=== PATIENT | male | born 1950 | race Caucasian/White ===

== ENCOUNTER 2018-01-06 01:21 | Inpatient (IN) | payer MEDICARE, MEDICAID, OTHER ==
--- NOTE | 2018-01-06 01:56 | EDM.PDOC ---
ED HPI GENERAL MEDICAL PROBLEM - General Chief Complaint: General Stated Complaint: LOC/lac Time Seen by Provider: 01/06/18 01:56 Source of Information: Reports: Patient - History of Present Illness INITIAL COMMENTS - FREE TEXT/NARRATIVE: Magdiel is a 67 year old male with PMH of CAD, hypertenson, hyperlipidemia, peripheral vascular disease, COPD, and TIA who presents to the ED via private vehicle with c/o fall and face laceration. He reports he got up from sleep around 10 pm and the next thing he remembers is waking up on the floor. He denies tripping, etc. Reports he also had a similar episode last week, in which he also hit his head. He believes he just passes out. He reports he has been doctoring in [facility] with Dr. Bassett and [place] with a cardologist "for his heart and vessels that are clogged but theres not much more they can do." Reports he had a TIA 6 years ago, has been on aspirin and plavix since. Has had recent US of carotid arteries, revealing chronic occlusion of right internal carotid artery, and fairly extensive calcified artherosclerosis of the left common and internal carotid arteries. He does report that he has felt more weak lately, but other than that has been feeling well. Reports that he decided to come in because his upper extremities were shaking. He denies any dizziness, headache, N/T, chest pain, shortness of breath. Denies any history of heart attack, orthopnea, palpitations. He does report he smokes 2 ppd for the past 50 years and drinks 6 beers/day. Does report he had his "normal amount of beer" this evening, but went to bed an hour before this happened. Onset: Today, Sudden Onset Date: 01/06/18 Onset Time: 22:00 Duration: Resolved Prior to Arrival Location: Reports: Head Associated Symptoms: Reports: Weakness. Denies: Confusion, Chest Pain, Cough, cough w sputum, Diaphoresis, Fever/Chills, Headaches, Loss of Appetite, Malaise , Nausea/Vomiting, Rash, Seizure, Shortness of Breath, Syncope - Related Data Allergies Allergy/AdvReac Type Severity Reaction Status Date / Time No Known Allergies Allergy Verified 01/06/18 04:03 Home Meds: Home Meds Lisinopril 20 mg PO DAILY 04/25/14 [History] Multivitamins [Tab-A-Dennys] 1 tab PO DAILY 04/25/14 [History] Simvastatin [Zocor] 20 mg PO BEDTIME 04/25/14 [History] Aspirin [Halfprin] 81 mg PO DAILY #100 tab.ec 01/05/16 [Rx] Clopidogrel [Plavix] 75 mg PO DAILY #30 tablet 01/05/16 [Rx] amLODIPine [Norvasc] 10 mg PO BEDTIME #30 tablet 01/05/16 [Rx] Albuterol/Ipratropium [DuoNeb 3.0-0.5 MG/3 ML] 3 ml INH QID 01/06/18 [History] Cholecalciferol (Vitamin D3) [Vitamin D3] 2,000 units PO DAILY 01/06/18 [History ] Metoprolol Succinate 50 mg PO DAILY 01/06/18 [History] Past Medical History HEENT History: Reports: Impaired Vision Other HEENT History: 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 Cardiovascular History: Reports: High Cholesterol, Hypertension Neurological History: Reports: TIA - Past Surgical History Musculoskeletal Surgical History: Reports: Knee Replacement Social & Family History - Family History Family Medical History: Noncontributory - Tobacco Use Smoking Status *Q: Current Every Day Smoker Years of Tobacco use: 50 Packs/Tins Daily: 2 - Caffeine Use Caffeine Use: Reports: Coffee - Alcohol Use Days Per Week of Alcohol Use: 7 Number of Drinks Per Day: 6 Total Drinks Per Week: 42 Alcohol Use Frequency: Daily - Recreational Drug Use Recreational Drug Use: No - Living Situation & Occupation Living situation: Reports: Alone ED ROS GENERAL - Review of Systems Review Of Systems: See Below Constitutional: Reports: Weakness, Fatigue. Denies: Fever, Chills, Malaise, Decreased Appetite, Weight Loss HEENT: Denies: Eye Discharge, Eye Pain, Nosebleed, Vertigo, Vision Change Respiratory: Denies: Shortness of Breath, Wheezing, Pleuritic Chest Pain, Cough , Sputum, Hemoptysis Cardiovascular: Reports: Dyspnea on Exertion, Syncope. Denies: Chest Pain, Edema, Lightheadedness Endocrine: Reports: Fatigue GI/Abdominal: Reports: No Symptoms. Denies: Abdominal Pain, Black Stool, Bloody Stool, Constipation, Diarrhea, Nausea, Vomiting : Reports: No Symptoms. Denies: Dysuria, Frequency, Urgency Musculoskeletal: Reports: No Symptoms. Denies: Neck Pain, Shoulder Pain, Arm Pain, Back Pain, Leg Pain, Joint Pain Skin: Reports: No Symptoms Neurological: Reports: Syncope, Weakness. Denies: Confusion, Dizziness, Headache, Numbness, Tingling Psychiatric: Reports: No Symptoms Hematologic/Lymphatic: Reports: No Symptoms Immunologic: Reports: No Symptoms ED EXAM, GENERAL - Physical Exam Exam: See Below Exam Limited By: No Limitations General Appearance: Alert, WD/WN, No Apparent Distress Eye Exam: Right Eye: PERRL, Left Eye: Other (dilated & fixed, baseline from old injury), Bilateral Eye: EOMI, Normal Fundi, Normal Inspection Ears: Normal External Exam, Normal Canal, Hearing Grossly Normal, Normal TMs Nose: Normal Inspection, Normal Mucosa, No Blood Throat/Mouth: Normal Inspection, Normal Lips, Normal Teeth (upper dentures), Normal Gums, Normal Oropharynx, Normal Voice, No Airway Compromise Head: Facial Swelling, Facial Tenderness, Other (4.5 cm superficial abrasion from mid forehead to bridge of nose, scabbed over) Neck: Normal Inspection, Supple, Non-Tender, Full Range of Motion Respiratory/Chest: No Respiratory Distress, Rales, Rhonchi, Wheezing Cardiovascular: Regular Rate, Rhythm, No Edema, No Murmur, Gallop/S3 Back Exam: Normal Inspection, Full Range of Motion, NT Extremities: Normal Inspection, Normal Range of Motion, Non-Tender, Normal Capillary Refill, No Pedal Edema Neurological: Alert, Oriented, CN II-XII Intact, Normal Cognition, Normal Gait, No Motor/Sensory Deficits, Other (tremor BUE) Psychiatric: Normal Affect, Normal Mood Skin Exam: Warm, Dry, Intact, Normal Color, No Rash Course - Vital Signs Last Recorded V/S: Last Vital Signs Temp 96.2 F 01/07/18 07:09 Pulse 102 H 01/07/18 08:24 Resp 20 01/07/18 07:09 BP 124/67 01/07/18 08:24 Pulse Ox 98 01/07/18 07:09 - Orders/Labs/Meds Orders: Active Orders 24 hr Category Date Time Status BMP [BASIC METABOLIC PANEL,BMP] [CHEM] DAILY Lab 01/08/18 06:00 Ordered BMP [BASIC METABOLIC PANEL,BMP] [CHEM] DAILY Lab 01/09/18 06:00 Ordered C-REACTIVE PROTEIN [CHEM] DAILY Lab 01/08/18 06:00 Ordered C-REACTIVE PROTEIN [CHEM] DAILY Lab 01/09/18 06:00 Ordered CBC WITH AUTO DIFF [HEME] DAILY Lab 01/08/18 06:00 Ordered CBC WITH AUTO DIFF [HEME] DAILY Lab 01/09/18 06:00 Ordered Medication Orders Acetaminophen (Tylenol) 650 mg PO Q4H PRN PRN Reason: Pain (Mild 1-3)/fever Albuterol/Ipratropium (Duoneb 3.0-0.5 Mg/3 Ml) 3 ml INH QID [facility] Last Admin: 01/07/18 08:25 Dose: 3 ml Admin: 01/06/18 20:18 Dose: 3 ml Admin: 01/06/18 16:00 Dose: 3 ml Admin: 01/06/18 12:41 Dose: 3 ml Admin: 01/06/18 08:51 Dose: 3 ml Amlodipine Besylate (Norvasc) 10 mg PO BEDTIME [facility] Last Admin: 01/06/18 20:18 Dose: 10 mg Aspirin (Halfprin) 81 mg PO DAILY [facility] Last Admin: 01/07/18 08:25 Dose: 81 mg Admin: 01/06/18 08:50 Dose: 81 mg Clopidogrel Bisulfate (Plavix) 75 mg PO DAILY [facility] Last Admin: 01/07/18 08:25 Dose: 75 mg Admin: 01/06/18 08:50 Dose: 75 mg Enoxaparin Sodium (Lovenox) 40 mg SUBCUT DAILY [facility] Last Admin: 01/07/18 08:24 Dose: 40 mg Sodium Chloride (Normal Saline) 1,000 mls @ 125 mls/hr IV ASDIRECTED [facility] Last Admin: 01/07/18 06:19 Dose: 125 mls/hr Infusion: 01/07/18 06:16 Dose: 125 mls/hr Admin: 01/06/18 22:16 Dose: 125 mls/hr Infusion: 01/06/18 20:15 Dose: 125 mls/hr Admin: 01/06/18 12:15 Dose: 125 mls/hr Infusion: 01/06/18 11:20 Dose: 125 mls/hr Admin: 01/06/18 03:20 Dose: 125 mls/hr Magnesium Sulfate/Dextrose 2 (gm/ Premix) 200 mls @ 100 mls/hr IV ONETIME ONE Stop: 01/07/18 11:02 Levofloxacin/Dextrose 500 mg/ (Premix) 100 mls @ 100 mls/hr IV DAILY [facility] Lisinopril (Prinivil) 20 mg PO DAILY [facility] Last Admin: 01/07/18 08:25 Dose: 20 mg Admin: 01/06/18 08:50 Dose: 20 mg Metoprolol Succinate (Toprol Xl) 50 mg PO DAILY [facility] Last Admin: 01/07/18 08:24 Dose: 50 mg Admin: 01/06/18 08:50 Dose: 50 mg Nicotine (Habitrol) 21 mg TRDERM DAILY [facility] Last Admin: 01/07/18 08:24 Dose: 21 mg Admin: 01/06/18 10:49 Dose: 21 mg Simvastatin (Zocor) 20 mg PO BEDTIME [facility] Last Admin: 01/06/18 20:18 Dose: 20 mg Temazepam (Restoril) 15 mg PO BEDTIME PRN PRN Reason: Sleep Last Admin: 01/06/18 23:40 Dose: 15 mg Labs: Laboratory Tests 01/06/18 01/06/18 01/06/18 Range/Units 02:02 02:20 02:20 WBC 15.5 H (5.0-10.0) 10^3/uL RBC 3.18 L (4.50-6.00) 10^6/uL Hgb 10.0 L (14.0-18.0) g/dL Hct 28.8 L (40.0-54.0) % MCV 90.6 (82.0-94.0) fL MCH 31.4 (27.0-32.0) pg MCHC 34.7 (33.0-38.0) g/dL RDW Coeff of Patrick 17.8 H (11.0-15.0) % Plt Count 384 (150-400) 10^3/uL Neut % (Auto) 83.8 (35-85) % Lymph % (Auto) 6.8 L (10-55) % [place] % (Auto) 7.8 (0-16) % Eos % (Auto) 1.4 (0-5) % Baso % (Auto) 0.2 (0-3) % Neut # (Auto) 12.96 H (1.80-7.00) 10^3/uL Lymph # (Auto) 1.05 (1.00-4.80) 10^3/uL [place] # (Auto) 1.20 H (0.00-0.80) 10^3/uL Eos # (Auto) 0.21 (0.00-0.45) 10^3/uL Baso # (Auto) 0.03 10^3/uL Sodium 116 L* (136-145) mEq/L Potassium 4.9 D (3.5-5.0) mEq/L Chloride 82 L (98-106) mEq/L Carbon Dioxide 25 (21-32) mmol/L BUN 11 D (7-18) mg/dL Creatinine 0.7 (0.7-1.3) mg/dL Est Cr Clr Drug Dosing TNP Estimated GFR (MDRD) > 60 (>=60) mL/min Glucose 94 (75-99) mg/dL Calcium 9.1 (8.4-10.1) mg/dL Total Bilirubin 0.3 (0.0-1.0) mg/dL AST 25 (15-37) U/L ALT 25 (12-78) U/L Alkaline Phosphatase 94 (46-116) U/L Lactate Dehydrogenase 168 (100-190) U/L Creatine Kinase 129 (35-232) U/L Troponin I < 0.017 (0.00-0.06) ng/mL Total Protein 7.1 (6.4-8.2) g/dL Albumin 3.0 L (3.4-5.0) g/dL Urine Color Light yellow (YELLOW) Urine Appearance Clear (CLEAR) Urine pH 6.5 (4.5-8.0) Ur Specific [place] 1.015 (1.003-1.020) Urine Protein Negative (NEGATIVE) mg/dL Urine Glucose (UA) Negative (NEGATIVE) mg/dL Urine Ketones Negative (NEGATIVE) mg/dL Urine Occult Blood Negative (NEGATIVE) Urine Nitrite Negative (NEGATIVE) Urine Bilirubin Negative (NEGATIVE) Urine Urobilinogen 0.2 (0.2-1.0) EU/dL Ur Leukocyte Esterase Negative (NEGATIVE) Urine RBC Not seen (0-5) /HPF Urine WBC Not seen (0-5) /HPF Meds: Medications Generic Name Dose Route Start Last Admin Trade Name Freq PRN Reason Stop Dose Admin Acetaminophen 650 mg 01/06/18 03:50 Tylenol PO Q4H PRN Pain (Mild 1-3)/fever Albuterol/Ipratropium 3 ml 01/06/18 09:00 01/07/18 08:25 Duoneb 3.0-0.5 Mg/3 Ml INH 3 ml QID [facility] Administration Amlodipine Besylate 10 mg 01/06/18 20:00 01/06/18 20:18 Norvasc PO 10 mg BEDTIME [facility] Administration Aspirin 81 mg 01/06/18 08:30 01/07/18 08:25 Halfprin PO 81 mg DAILY [facility] Administration Clopidogrel Bisulfate 75 mg 01/06/18 08:30 01/07/18 08:25 Plavix PO 75 mg DAILY [facility] Administration Enoxaparin Sodium 40 mg 01/07/18 08:00 01/07/18 08:24 Lovenox SUBCUT 40 mg DAILY [facility] Administration Sodium Chloride 1,000 mls @ 125 mls/hr 01/06/18 02:45 01/07/18 06:19 Normal Saline IV 125 mls/hr ASDIRECTED [facility] Administration Magnesium Sulfate/Dextrose 2 200 mls @ 100 mls/hr 01/07/18 09:03 gm/ Premix IV 01/07/18 11:02 ONETIME ONE Levofloxacin/Dextrose 500 mg/ 100 mls @ 100 mls/hr 01/07/18 09:15 Premix IV DAILY [facility] Lisinopril 20 mg 01/06/18 08:30 01/07/18 08:25 Prinivil PO 20 mg DAILY [facility] Administration Metoprolol Succinate 50 mg 01/06/18 08:30 01/07/18 08:24 Toprol Xl PO 50 mg DAILY [facility] Administration Nicotine 21 mg 01/06/18 10:30 01/07/18 08:24 Habitrol TRDERM 21 mg DAILY [facility] Administration Simvastatin 20 mg 01/06/18 20:00 01/06/18 20:18 Zocor PO 20 mg BEDTIME [facility] Administration Temazepam 15 mg 01/06/18 03:50 01/06/18 23:40 Restoril PO 15 mg BEDTIME PRN Administration Sleep Discontinued Medications Generic Name Dose Route Start Last Admin Trade Name Freq PRN Reason Stop Dose Admin Ceftriaxone Sodium 1 gm 01/06/18 04:00 01/06/18 05:28 Rocephin IVPUSH 1 gm Q24H [facility] Administration Ceftriaxone Sodium 1 gm 01/07/18 08:00 01/07/18 08:17 Rocephin IVPUSH 1 gm DAILY [facility] Administration Enoxaparin Sodium 30 mg 01/06/18 03:50 01/06/18 04:54 Lovenox SUBCUT Not Given Q24H [facility] Enoxaparin Sodium 40 mg 01/06/18 04:00 01/06/18 05:28 Lovenox SUBCUT 40 mg Q24H [facility] Administration Azithromycin 500 mg/ Sodium 250 mls @ 250 mls/hr 01/06/18 04:00 01/06/18 05: 28 Chloride IV 250 mls/hr Q24H [facility] Administration Azithromycin 500 mg/ Sodium 250 mls @ 250 mls/hr 01/07/18 08:00 01/07/18 08: 23 Chloride IV 250 mls/hr DAILY [facility] Administration Thiamine HCl 100 mg/ Sodium 101 mls @ 202 mls/hr 01/06/18 15:12 01/06/18 15: 59 Chloride IV 01/06/18 15:13 202 mls/hr ONETIME ONE Administration Magnesium Sulfate/Dextrose 2 200 mls @ 100 mls/hr 01/06/18 18:10 01/06/18 18: 30 gm/ Premix IV 01/06/18 20:09 100 mls/hr ONETIME ONE Administration Thiamine HCl Confirm 01/06/18 15:58 01/06/18 16:00 Vitamin B-1 Administered 01/06/18 15:59 Not Given Dose 200 mg .ROUTE .[facility] - Re-Assessments/Exams Free Text/Narrative Re-Assessment/Exam: 01/06/18 02:[address] negative. Lab, EKG, CXR, and CT results discussed with patient and family. Patient has critically low Na. Will admit for IVF and reassess tomorrow. Departure - Departure Time of Disposition: 03:30 Disposition: Admitted As Inpatient 64 Condition: Fair Clinical Impression: Hyponatremia, Weakness, Hypertension COPD (chronic obstructive pulmonary disease) Qualifiers: COPD type: COPD with acute lower respiratory infection Qualified Code(s): J44.0 - Chronic obstructive pulmonary disease with acute lower respiratory infection Syncopal episodes Qualifiers: Encounter type: initial encounter - Discharge Information *PRESCRIPTION DRUG MONITORING PROGRAM REVIEWED*: Not Applicable *COPY OF PRESCRIPTION DRUG MONITORING REPORT IN PATIENT GUZMAN: Not Applicable - Problem List & Annotations (1) Hyponatremia SNOMED Code(s): 02897270 Code(s): E87.1 - HYPO-OSMOLALITY AND HYPONATREMIA Status: Acute Priority : High Current Visit: No (2) COPD (chronic obstructive pulmonary disease) SNOMED Code(s): 79751549 Code(s): J44.9 - CHRONIC OBSTRUCTIVE PULMONARY DISEASE, UNSPECIFIED Status : Acute Current Visit: Yes Qualifiers: COPD type: COPD with acute lower respiratory infection Qualified Code(s): J44.0 - Chronic obstructive pulmonary disease with acute lower respiratory infection (3) Hypertension SNOMED Code(s): 77003091 Code(s): I10 - ESSENTIAL (PRIMARY) HYPERTENSION Status: Acute Priority: High Current Visit: Yes Qualifiers: Hypertension type: unspecified Qualified Code(s): I10 - Essential (primary ) hypertension (4) Syncopal episodes SNOMED Code(s): 667568552 Code(s): R55 - SYNCOPE AND COLLAPSE Status: Acute Current Visit: Yes Qualifiers: Encounter type: initial encounter (5) Weakness SNOMED Code(s): 96168629 Code(s): R53.1 - WEAKNESS Status: Acute Current Visit: Yes - Problem List Review Problem List Initiated/Reviewed/Updated: Yes - My Orders Last 24 Hours: My Active Orders 01/08/18 06:00 BMP [BASIC METABOLIC PANEL,BMP] [CHEM] DAILY C-REACTIVE PROTEIN [CHEM] DAILY CBC WITH AUTO DIFF [HEME] DAILY 01/09/18 06:00 BMP [BASIC METABOLIC PANEL,BMP] [CHEM] DAILY C-REACTIVE PROTEIN [CHEM] DAILY CBC WITH AUTO DIFF [HEME] DAILY - Assessment/Plan Admission H&P: Please use this note as an admission H&P Last 24 Hours: My Active Orders 01/08/18 06:00 BMP [BASIC METABOLIC PANEL,BMP] [CHEM] DAILY C-REACTIVE PROTEIN [CHEM] DAILY CBC WITH AUTO DIFF [HEME] DAILY 01/09/18 06:00 BMP [BASIC METABOLIC PANEL,BMP] [CHEM] DAILY C-REACTIVE PROTEIN [CHEM] DAILY CBC WITH AUTO DIFF [HEME] DAILY Plan: Patient admitted acute with telemetry to Dr. Palmer. Will initiate IVF and close monitoring of Sodium. Recheck labs in 8 hours. Chest xray negative for infiltrate. Does have significant COPD and adventitious lung sounds. Given significant hyponatremia, leukocytosis, and these findings, will treat with IV antibiotics. Patient has already had extensive work up, including cardiology consultation regarding syncopal episodes. Daily labs. PT consult for strengthening. Patient also a known heavy ETOH user, will administer thiamine x 1 dose. Lovenox for DVT prophylaxis. Already on Plavix, monitor for bleeding. Patient is a 2 ppd smoker x 50 years. Nicotine patch ordered. Patient verbalized understanding and was agreeable to hospital admit. Patient was transferred to floor in satisfactory condition.
[2018-01-06 02:39] LABS: CHLORIDE,CL 82 mEq/L (98-106)
[2018-01-06 02:40] LABS: SODIUM,NA 116 mEq/L (136-145)
[2018-01-06] MEDS: Sodium Chloride 0.9% 1,000 ML IV SCH ×3 (03:20→22:16)
[2018-01-06] MEDS ORDERED: Temazepam 15 MG Cap PO PRN (03:50)
[2018-01-06] MEDS ORDERED: Acetaminophen 325 MG Tab PO PRN (03:50)
[2018-01-06] MEDS ORDERED: Enoxaparin 30 MG/0.3 ML Syringe SUBCUT SCH (03:50)
[2018-01-06] MEDS ORDERED: Azithromycin 500 MG in Sodium Chloride 0.9% 250 ML IV SCH (04:00)
[2018-01-06] MEDS ORDERED: cefTRIAXone 1 GM Vial IVPUSH SCH (04:00)
[2018-01-06] MEDS ORDERED: Enoxaparin 40 MG/0.4 ML Syringe SUBCUT SCH (04:00)
[2018-01-06] MEDS: Aspirin 81 MG Tab.EC PO SCH (08:50)
[2018-01-06] MEDS: Lisinopril 20 MG Tab PO SCH (08:50)
[2018-01-06] MEDS: Metoprolol Succinate 25 MG Tab.ER PO SCH (08:50)
[2018-01-06] MEDS: Clopidogrel 75 MG Tab PO SCH (08:50)
[2018-01-06] MEDS: Albuterol/Ipratropium 3.0-0.5 MG/3 ML Neb Soln INH SCH ×4 (08:51→20:18)
[2018-01-06 10:04] LABS: CHLORIDE,CL 85 mEq/L (98-106)
[2018-01-06 10:06] LABS: SODIUM,NA 119 mEq/L (136-145)
[2018-01-06] MEDS: Nicotine 21 MG/24 Hr Patch TRDERM SCH (10:49)
[2018-01-06] MEDS ORDERED: Thiamine 100 MG in Sodium Chloride 0.9% 100 ML IV ONE (15:12)
[2018-01-06] MEDS ORDERED: Thiamine 200 MG/2 ML MDV ONE (15:58)
[2018-01-06] MEDS ORDERED: Magnesium Sulfate/D5W 2 GM in Premix Bag 1 BAG IV ONE (18:10)
[2018-01-06] MEDS: Simvastatin 20 MG Tab PO SCH (20:18)
[2018-01-06] MEDS: amLODIPine 10 MG Tab PO SCH (20:18)
[2018-01-07] MEDS: Sodium Chloride 0.9% 1,000 ML IV SCH ×2 (06:19→16:18)
[2018-01-07 07:31] LABS: CHLORIDE,CL 93 mEq/L (98-106); SODIUM,NA 126 mEq/L (136-145)
[2018-01-07] MEDS ORDERED: cefTRIAXone 1 GM Vial IVPUSH SCH (08:00)
[2018-01-07] MEDS ORDERED: Azithromycin 500 MG in Sodium Chloride 0.9% 250 ML IV SCH (08:00)
[2018-01-07] MEDS: Nicotine 21 MG/24 Hr Patch TRDERM SCH (08:24)
[2018-01-07] MEDS: Metoprolol Succinate 25 MG Tab.ER PO SCH (08:24)
[2018-01-07] MEDS: Enoxaparin 40 MG/0.4 ML Syringe SUBCUT SCH (08:24)
[2018-01-07] MEDS: Lisinopril 20 MG Tab PO SCH (08:25)
[2018-01-07] MEDS: Clopidogrel 75 MG Tab PO SCH (08:25)
[2018-01-07] MEDS: Albuterol/Ipratropium 3.0-0.5 MG/3 ML Neb Soln INH SCH ×4 (08:25→19:57)
[2018-01-07] MEDS: Aspirin 81 MG Tab.EC PO SCH (08:25)
[2018-01-07] MEDS ORDERED: Magnesium Sulfate/D5W 2 GM in Premix Bag 1 BAG IV ONE (09:03)
[2018-01-07] MEDS ORDERED: Levofloxacin/Dextrose 5%-Water 500 MG in Premix Bag 1 BAG IV SCH (09:15)
[2018-01-07] MEDS: Levofloxacin/Dextrose 5%-Water 500 MG in Premix Bag 1 BAG IV SCH (11:40)
--- NOTE | 2018-01-07 14:19 | PCM.PN ---
- General Info Date of Service: 01/07/18 Admission Dx/Problem (Free Text): Hyponatremia Functional Status: Reports: Pain Controlled, Tolerating Diet, Ambulating - Review of Systems General: Denies: Fever, Weakness, Fatigue HEENT: Reports: No Symptoms Pulmonary: Denies: Shortness of Breath, Cough, Wheezing Cardiovascular: Denies: Chest Pain, Edema, Lightheadedness Gastrointestinal: Denies: Abdominal Pain, Nausea, Vomiting Musculoskeletal: Reports: No Symptoms Skin: Reports: Other (superficial laceration to forehead and scalp) Neurological: Reports: No Symptoms - Patient Data Vitals - Most Recent: Last Vital Signs Temp 97.1 F 01/07/18 11:37 Pulse 80 01/07/18 11:37 Resp 20 01/07/18 11:37 BP 109/60 01/07/18 11:37 Pulse Ox 92 L 01/07/18 11:37 Weight - Most Recent: 122 lb 6.4 oz I&O - Last 24 Hours: Intake & Output 01/06/18 01/07/18 01/07/18 22:59 06:59 14:59 Intake Total 1000 1000 Balance 1000 1000 Lab Results Last 24 Hours: Laboratory Results - last 24 hr 01/07/18 01/07/18 Range/Units 06:50 06:50 WBC 11.6 H (5.0-10.0) 10^3/uL RBC 2.81 L (4.50-6.00) 10^6/uL Hgb 8.9 L (14.0-18.0) g/dL Hct 26.4 L (40.0-54.0) % MCV 94.0 (82.0-94.0) fL MCH 31.7 (27.0-32.0) pg MCHC 33.7 (33.0-38.0) g/dL RDW Coeff of Patrick 18.6 H (11.0-15.0) % Plt Count 405 H (150-400) 10^3/uL Neut % (Auto) 82.5 (35-85) % Lymph % (Auto) 8.3 L (10-55) % [place] % (Auto) 7.5 (0-16) % Eos % (Auto) 1.4 (0-5) % Baso % (Auto) 0.3 (0-3) % Neut # (Auto) 9.60 H (1.80-7.00) 10^3/uL Lymph # (Auto) 0.97 L (1.00-4.80) 10^3/uL [place] # (Auto) 0.87 H (0.00-0.80) 10^3/uL Eos # (Auto) 0.16 (0.00-0.45) 10^3/uL Baso # (Auto) 0.03 10^3/uL Sodium 126 L (136-145) mEq/L Potassium 4.1 D (3.5-5.0) mEq/L Chloride 93 L (98-106) mEq/L Carbon Dioxide 24 (21-32) mmol/L BUN 7 (7-18) mg/dL Creatinine 0.6 L (0.7-1.3) mg/dL Est Cr Clr Drug Dosing 91.25 mL/min Estimated GFR (MDRD) > 60 (>=60) mL/min Glucose 126 H (75-99) mg/dL Calcium 8.4 (8.4-10.1) mg/dL Magnesium 1.5 L (1.8-2.4) mg/dL C-Reactive Protein 10.9 H (0.2-0.8) mg/dL Med Orders - Current: Current Medications Acetaminophen (Tylenol) 650 mg PO Q4H PRN PRN Reason: Pain (Mild 1-3)/fever Albuterol/Ipratropium (Duoneb 3.0-0.5 Mg/3 Ml) 3 ml INH QID [facility] Last Admin: 01/07/18 11:46 Dose: 3 ml Amlodipine Besylate (Norvasc) 10 mg PO BEDTIME [facility] Last Admin: 01/06/18 20:18 Dose: 10 mg Aspirin (Halfprin) 81 mg PO DAILY [facility] Last Admin: 01/07/18 08:25 Dose: 81 mg Clopidogrel Bisulfate (Plavix) 75 mg PO DAILY [facility] Last Admin: 01/07/18 08:25 Dose: 75 mg Enoxaparin Sodium (Lovenox) 40 mg SUBCUT DAILY [facility] Last Admin: 01/07/18 08:24 Dose: 40 mg Sodium Chloride (Normal Saline) 1,000 mls @ 125 mls/hr IV ASDIRECTED [facility] Last Admin: 01/07/18 06:19 Dose: 125 mls/hr Levofloxacin/Dextrose 500 mg/ (Premix) 100 mls @ 100 mls/hr IV DAILY@1200 [facility] Last Admin: 01/07/18 11:40 Dose: 100 mls/hr Lisinopril (Prinivil) 20 mg PO DAILY [facility] Last Admin: 01/07/18 08:25 Dose: 20 mg Metoprolol Succinate (Toprol Xl) 50 mg PO DAILY [facility] Last Admin: 01/07/18 08:24 Dose: 50 mg Nicotine (Habitrol) 21 mg TRDERM DAILY [facility] Last Admin: 01/07/18 08:24 Dose: 21 mg Simvastatin (Zocor) 20 mg PO BEDTIME [facility] Last Admin: 01/06/18 20:18 Dose: 20 mg Temazepam (Restoril) 15 mg PO BEDTIME PRN PRN Reason: Sleep Last Admin: 01/06/18 23:40 Dose: 15 mg Discontinued Medications Ceftriaxone Sodium (Rocephin) 1 gm IVPUSH Q24H [facility] Last Admin: 01/06/18 05:28 Dose: 1 gm Ceftriaxone Sodium (Rocephin) 1 gm IVPUSH DAILY [facility] Last Admin: 01/07/18 08:17 Dose: 1 gm Enoxaparin Sodium (Lovenox) 30 mg SUBCUT Q24H [facility] Last Admin: 01/06/18 04:54 Dose: Not Given Enoxaparin Sodium (Lovenox) 40 mg SUBCUT Q24H [facility] Last Admin: 01/06/18 05:28 Dose: 40 mg Azithromycin 500 mg/ Sodium (Chloride) 250 mls @ 250 mls/hr IV Q24H [facility] Last Admin: 01/06/18 05:28 Dose: 250 mls/hr Azithromycin 500 mg/ Sodium (Chloride) 250 mls @ 250 mls/hr IV DAILY [facility] Last Admin: 01/07/18 08:23 Dose: 250 mls/hr Thiamine HCl 100 mg/ Sodium (Chloride) 101 mls @ 202 mls/hr IV ONETIME ONE Stop: 01/06/18 15:13 Last Admin: 01/06/18 15:59 Dose: 202 mls/hr Magnesium Sulfate/Dextrose 2 (gm/ Premix) 200 mls @ 100 mls/hr IV ONETIME ONE Stop: 01/06/18 20:09 Last Admin: 01/06/18 18:30 Dose: 100 mls/hr Magnesium Sulfate/Dextrose 2 (gm/ Premix) 200 mls @ 100 mls/hr IV ONETIME ONE Stop: 01/07/18 11:02 Last Admin: 01/07/18 10:07 Dose: 100 mls/hr Levofloxacin/Dextrose 500 mg/ (Premix) 100 mls @ 100 mls/hr IV DAILY [facility] Thiamine HCl (Vitamin B-1) Confirm Administered Dose 200 mg .ROUTE .[facility] Stop: 01/06/18 15:59 Last Admin: 01/06/18 16:00 Dose: Not Given - Exam General: Alert, Oriented HEENT: Mucous Membr. Moist/[place] Neck: Supple Lungs: Normal Respiratory Effort, Crackles Cardiovascular: Regular Rate, Regular Rhythm GI/Abdominal Exam: Normal Bowel Sounds, Soft, Non-Tender Extremities: Normal Inspection, No Pedal Edema Skin: Other (laceration to forehead/scalp region is scabbed. Wound is well approximated. ) Wound/Incisions: Healing Well Neurological: No New Focal Deficit - Problem List & Annotations (1) COPD (chronic obstructive pulmonary disease) SNOMED Code(s): 55017962 Code(s): J44.9 - CHRONIC OBSTRUCTIVE PULMONARY DISEASE, UNSPECIFIED Status : Acute Priority: High Current Visit: Yes Qualifiers: COPD type: COPD with acute lower respiratory infection Qualified Code(s): J44.0 - Chronic obstructive pulmonary disease with acute lower respiratory infection (2) Hyponatremia SNOMED Code(s): 39207076 Code(s): E87.1 - HYPO-OSMOLALITY AND HYPONATREMIA Status: Acute Priority : High Current Visit: Yes (3) Syncopal episodes SNOMED Code(s): 508043786 Code(s): R55 - SYNCOPE AND COLLAPSE Status: Acute Priority: High Current Visit: Yes Qualifiers: Encounter type: initial encounter (4) Hypomagnesemia SNOMED Code(s): 407955304 Code(s): E83.42 - HYPOMAGNESEMIA Status: Acute Priority: High Current Visit: Yes - Problem List Review Problem List Initiated/Reviewed/Updated: Yes - My Orders Last 24 Hours: My Active Orders 01/07/18 12:00 Levofloxacin/Dextrose 5%-Water [Levaquin in D5W 500 MG/100 ML] 500 mg Premix Bag 1 bag IV DAILY@1200 01/07/18 16:00 MAGNESIUM [CHEM] Routine - Assessment Assessment:: Syncope COPD exacerbation with lower respiratory tract infection Hyponatremia Hypomagnesemia - Plan Plan:: Patient feeling good today. Denies any lightheadedness, chest pain, irritability. He does have chronic cough, doesn't feel has changed. Laceration to forehead is well approximated, healing. Denies pain or headache. Is up and moving around without any difficulty. Lung sounds are diminished with crackles noted in the bases. Labs today show a WBC of 11.6, Hgb of 8.9. Sodium has improved from 116 to 126. CRP 10.9. Magnesium has improved to 1.5 today Will continue with IV NS. Magnesium 2 gm IV today. Recheck magnesium level at 1600 today. Repeat chest xray in am. Switched Rocephin to Levaquin for questionable infiltrate in lungs. Possible discharge tomorrow if labs stabilize.
[2018-01-07] MEDS: Simvastatin 20 MG Tab PO SCH (19:57)
[2018-01-07] MEDS: amLODIPine 10 MG Tab PO SCH (19:57)
[2018-01-08] MEDS: Sodium Chloride 0.9% 1,000 ML IV SCH ×3 (00:19→19:20)
[2018-01-08] MEDS: Enoxaparin 40 MG/0.4 ML Syringe SUBCUT SCH (07:30)
[2018-01-08] MEDS: Nicotine 21 MG/24 Hr Patch TRDERM SCH (07:30)
[2018-01-08] MEDS: Albuterol/Ipratropium 3.0-0.5 MG/3 ML Neb Soln INH SCH ×4 (07:31→19:43)
[2018-01-08] MEDS: Metoprolol Succinate 25 MG Tab.ER PO SCH (07:31)
[2018-01-08] MEDS: Lisinopril 20 MG Tab PO SCH (07:31)
[2018-01-08] MEDS: Clopidogrel 75 MG Tab PO SCH (07:31)
[2018-01-08] MEDS: Aspirin 81 MG Tab.EC PO SCH (07:31)
[2018-01-08 08:28] LABS: CHLORIDE,CL 93 mEq/L (98-106); SODIUM,NA 126 mEq/L (136-145)
[2018-01-08] MEDS ORDERED: Magnesium Sulfate/D5W 2 GM in Premix Bag 1 BAG IV ONE (08:31)
--- NOTE | 2018-01-08 08:56 | PCM.PN ---
- General Info Date of Service: 01/08/18 Admission Dx/Problem (Free Text): Hyponatremia Functional Status: Reports: Pain Controlled, Tolerating Diet, Ambulating - Review of Systems General: Reports: Weakness. Denies: Fever, Fatigue HEENT: Reports: No Symptoms Pulmonary: Reports: Cough. Denies: Shortness of Breath Cardiovascular: Denies: Chest Pain, Edema, Lightheadedness Gastrointestinal: Denies: Abdominal Pain, Nausea, Vomiting Genitourinary: Reports: Frequency Musculoskeletal: Reports: No Symptoms Skin: Reports: Other (laceration to forehead) Neurological: Reports: Weakness. Denies: Confusion, Headache - Patient Data Vitals - Most Recent: Last Vital Signs Temp 97 F 01/08/18 08:00 Pulse 96 01/08/18 08:00 Resp 18 01/08/18 08:00 BP 130/76 01/08/18 08:00 Pulse Ox 97 01/08/18 08:00 Weight - Most Recent: 122 lb 6.4 oz I&O - Last 24 Hours: Intake & Output 01/07/18 01/08/18 01/08/18 22:59 06:59 14:59 Intake Total 1000 1000 Balance 1000 1000 Lab Results Last 24 Hours: Laboratory Results - last 24 hr 01/07/18 01/08/18 01/08/18 Range/Units 16:00 06:55 06:55 WBC 10.9 H (5.0-10.0) 10^3/uL RBC 2.79 L (4.50-6.00) 10^6/uL Hgb 8.7 L (14.0-18.0) g/dL Hct 26.4 L (40.0-54.0) % MCV 94.6 H (82.0-94.0) fL MCH 31.2 (27.0-32.0) pg MCHC 33.0 (33.0-38.0) g/dL RDW Coeff of Patrick 18.9 H (11.0-15.0) % Plt Count 443 H (150-400) 10^3/uL Neut % (Auto) 79.0 (35-85) % Lymph % (Auto) 9.3 L (10-55) % [place] % (Auto) 10.0 (0-16) % Eos % (Auto) 1.5 (0-5) % Baso % (Auto) 0.2 (0-3) % Neut # (Auto) 8.60 H (1.80-7.00) 10^3/uL Lymph # (Auto) 1.01 (1.00-4.80) 10^3/uL [place] # (Auto) 1.09 H (0.00-0.80) 10^3/uL Eos # (Auto) 0.16 (0.00-0.45) 10^3/uL Baso # (Auto) 0.02 10^3/uL Sodium 126 L (136-145) mEq/L Potassium 4.1 (3.5-5.0) mEq/L Chloride 93 L (98-106) mEq/L Carbon Dioxide 23 (21-32) mmol/L BUN 6 L (7-18) mg/dL Creatinine 0.7 (0.7-1.3) mg/dL Est Cr Clr Drug Dosing 78.21 mL/min Estimated GFR (MDRD) > 60 (>=60) mL/min Glucose 115 H (75-99) mg/dL Calcium 8.2 L (8.4-10.1) mg/dL Magnesium 1.9 1.2 L (1.8-2.4) mg/dL C-Reactive Protein 6.7 H (0.2-0.8) mg/dL Med Orders - Current: Current Medications Acetaminophen (Tylenol) 650 mg PO Q4H PRN PRN Reason: Pain (Mild 1-3)/fever Albuterol/Ipratropium (Duoneb 3.0-0.5 Mg/3 Ml) 3 ml INH QID [facility] Last Admin: 01/08/18 07:31 Dose: 3 ml Amlodipine Besylate (Norvasc) 10 mg PO BEDTIME [facility] Last Admin: 01/07/18 19:57 Dose: 10 mg Aspirin (Halfprin) 81 mg PO DAILY [facility] Last Admin: 01/08/18 07:31 Dose: 81 mg Clopidogrel Bisulfate (Plavix) 75 mg PO DAILY [facility] Last Admin: 01/08/18 07:31 Dose: 75 mg Enoxaparin Sodium (Lovenox) 40 mg SUBCUT DAILY [facility] Last Admin: 01/08/18 07:30 Dose: 40 mg Sodium Chloride (Normal Saline) 1,000 mls @ 125 mls/hr IV ASDIRECTED [facility] Last Admin: 01/08/18 08:39 Dose: 125 mls/hr Levofloxacin/Dextrose 500 mg/ (Premix) 100 mls @ 100 mls/hr IV DAILY@1200 [facility] Last Admin: 01/07/18 11:40 Dose: 100 mls/hr Magnesium Sulfate/Dextrose 2 (gm/ Premix) 200 mls @ 100 mls/hr IV ONETIME ONE Stop: 01/08/18 10:30 Last Admin: 01/08/18 08:39 Dose: 100 mls/hr Lisinopril (Prinivil) 20 mg PO DAILY [facility] Last Admin: 01/08/18 07:31 Dose: 20 mg Magnesium Oxide (Magnesium Oxide) 250 mg PO BIDM [facility] Last Admin: 01/08/18 08:45 Dose: 250 mg Metoprolol Succinate (Toprol Xl) 50 mg PO DAILY [facility] Last Admin: 01/08/18 07:31 Dose: 50 mg Nicotine (Habitrol) 21 mg TRDERM DAILY [facility] Last Admin: 01/08/18 07:30 Dose: 21 mg Simvastatin (Zocor) 20 mg PO BEDTIME [facility] Last Admin: 01/07/18 19:57 Dose: 20 mg Temazepam (Restoril) 15 mg PO BEDTIME PRN PRN Reason: Sleep Last Admin: 01/06/18 23:40 Dose: 15 mg Discontinued Medications Ceftriaxone Sodium (Rocephin) 1 gm IVPUSH Q24H [facility] Last Admin: 01/06/18 05:28 Dose: 1 gm Ceftriaxone Sodium (Rocephin) 1 gm IVPUSH DAILY [facility] Last Admin: 01/07/18 08:17 Dose: 1 gm Enoxaparin Sodium (Lovenox) 30 mg SUBCUT Q24H [facility] Last Admin: 01/06/18 04:54 Dose: Not Given Enoxaparin Sodium (Lovenox) 40 mg SUBCUT Q24H [facility] Last Admin: 01/06/18 05:28 Dose: 40 mg Azithromycin 500 mg/ Sodium (Chloride) 250 mls @ 250 mls/hr IV Q24H [facility] Last Admin: 01/06/18 05:28 Dose: 250 mls/hr Azithromycin 500 mg/ Sodium (Chloride) 250 mls @ 250 mls/hr IV DAILY [facility] Last Admin: 01/07/18 08:23 Dose: 250 mls/hr Thiamine HCl 100 mg/ Sodium (Chloride) 101 mls @ 202 mls/hr IV ONETIME ONE Stop: 01/06/18 15:13 Last Admin: 01/06/18 15:59 Dose: 202 mls/hr Magnesium Sulfate/Dextrose 2 (gm/ Premix) 200 mls @ 100 mls/hr IV ONETIME ONE Stop: 01/06/18 20:09 Last Admin: 01/06/18 18:30 Dose: 100 mls/hr Magnesium Sulfate/Dextrose 2 (gm/ Premix) 200 mls @ 100 mls/hr IV ONETIME ONE Stop: 01/07/18 11:02 Last Admin: 01/07/18 10:07 Dose: 100 mls/hr Levofloxacin/Dextrose 500 mg/ (Premix) 100 mls @ 100 mls/hr IV DAILY [facility] Magnesium Oxide (Magnesium Oxide) 250 mg PO BIDM [facility] Thiamine HCl (Vitamin B-1) Confirm Administered Dose 200 mg .ROUTE .STK-MED ONE Stop: 01/06/18 15:59 Last Admin: 01/06/18 16:00 Dose: Not Given - Exam General: Alert, Oriented HEENT: Mucous Membr. Moist/[place] Neck: Supple Lungs: Decreased Breath Sounds Cardiovascular: Regular Rate, Regular Rhythm GI/Abdominal Exam: Normal Bowel Sounds, Soft, Non-Tender Extremities: Normal Inspection, No Pedal Edema Skin: Other (laceration to forehead healing, wound edges well approximated) Wound/Incisions: Healing Well, No Drainage Neurological: No New Focal Deficit - Problem List & Annotations (1) COPD (chronic obstructive pulmonary disease) SNOMED Code(s): 23036182 Code(s): J44.9 - CHRONIC OBSTRUCTIVE PULMONARY DISEASE, UNSPECIFIED Status : Acute Priority: High Current Visit: Yes Qualifiers: COPD type: COPD with acute lower respiratory infection Qualified Code(s): J44.0 - Chronic obstructive pulmonary disease with acute lower respiratory infection (2) Hyponatremia SNOMED Code(s): 75928177 Code(s): E87.1 - HYPO-OSMOLALITY AND HYPONATREMIA Status: Acute Priority : High Current Visit: Yes (3) Syncopal episodes SNOMED Code(s): 805081680 Code(s): R55 - SYNCOPE AND COLLAPSE Status: Acute Priority: High Current Visit: Yes Qualifiers: Encounter type: initial encounter (4) Hypomagnesemia SNOMED Code(s): 442643048 Code(s): E83.42 - HYPOMAGNESEMIA Status: Acute Priority: High Current Visit: Yes - Problem List Review Problem List Initiated/Reviewed/Updated: Yes - My Orders Last 24 Hours: My Active Orders 01/07/18 12:00 Levofloxacin/Dextrose 5%-Water [Levaquin in D5W 500 MG/100 ML] 500 mg Premix Bag 1 bag IV DAILY@1200 01/08/18 05:11 Chest 2V [CR] AM 01/08/18 08:31 Magnesium Sulfate/D5W [Magnesium 1 GM in D5W 100 ML] 2 gm Premix Bag 1 bag IV ONETIME 01/08/18 08:32 Magnesium Oxide 250 mg PO BIDM - Assessment Assessment:: Syncope COPD exacerbation with lower respiratory tract infection Hyponatremia Hypomagnesemia - Plan Plan:: 01-07-2018 Patient feeling good today. Denies any lightheadedness, chest pain, irritability. He does have chronic cough, doesn't feel has changed. Laceration to forehead is well approximated, healing. Denies pain or headache. Is up and moving around without any difficulty. Lung sounds are diminished with crackles noted in the bases. Labs today show a WBC of 11.6, Hgb of 8.9. Sodium has improved from 116 to 126. CRP 10.9. Magnesium has improved to 1.5 today Will continue with IV NS. Magnesium 2 gm IV today. Recheck magnesium level at 1600 today. Repeat chest xray in am. Switched Rocephin to Levaquin for questionable infiltrate in lungs. Possible discharge tomorrow if labs stabilize. 01-08-2018 Patient feeling good. No lightheadedness. No headache. Feels his balance is good, ambulating to BR and back and tolerating well. Laceration intact to forehead, no drainage. Nontender. Labs noted this am, WBC improving, 10.9 today. Sodium still low at 126, unchanged from yesterday. Magnesium low again this am at 1.2, was up to 1.9 yesterday afternoon. Chest xray done today, unchanged from previous one. Will ambulate in halls. Repeat Magnesium 2 gm today. Recheck magnesium later today. Continue Levaquin. Start oral magnesium. Possible discharge tomorrow if labs stabilize.
[2018-01-08] MEDS: Levofloxacin/Dextrose 5%-Water 500 MG in Premix Bag 1 BAG IV SCH (11:35)
[2018-01-08] MEDS: Simvastatin 20 MG Tab PO SCH (19:43)
[2018-01-08] MEDS: amLODIPine 10 MG Tab PO SCH (19:43)
[2018-01-09] MEDS: Sodium Chloride 0.9% 1,000 ML IV SCH (03:15)
[2018-01-09] MEDS: Albuterol/Ipratropium 3.0-0.5 MG/3 ML Neb Soln INH SCH ×2 (07:46→11:57)
[2018-01-09] MEDS: Metoprolol Succinate 25 MG Tab.ER PO SCH (07:47)
[2018-01-09] MEDS: Enoxaparin 40 MG/0.4 ML Syringe SUBCUT SCH (07:47)
[2018-01-09] MEDS: Nicotine 21 MG/24 Hr Patch TRDERM SCH (07:47)
[2018-01-09] MEDS: Aspirin 81 MG Tab.EC PO SCH (07:48)
[2018-01-09] MEDS: Clopidogrel 75 MG Tab PO SCH (07:48)
[2018-01-09] MEDS: Lisinopril 20 MG Tab PO SCH (07:48)
[2018-01-09 11:35] LABS: CHLORIDE,CL 91 mEq/L (98-106)
[2018-01-09 11:44] LABS: SODIUM,NA 124 mEq/L (136-145)
[2018-01-09 11:48] VITALS: BP 130/75
[2018-01-09] MEDS ORDERED: Magnesium Sulfate/D5W 2 GM in Premix Bag 1 BAG IV ONE (11:48)
[2018-01-09] MEDS: Levofloxacin/Dextrose 5%-Water 500 MG in Premix Bag 1 BAG IV SCH (14:07)
--- NOTE | 2018-01-11 21:38 | PCM.DCSUM1 ---
Discharge Summary - Hospital Course Free Text/Narrative:: Patient is a 67 year old male who presented to the ER with complaints of "passing out at home". States he had gone to bed an hour prior with his usual amount of alcohol intake (6 beers), got up and out of bed and awoke on the floor. States he does have issues with lightheadedness. He has been doctoring with Dr. 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 Had a TIA 6 years ago. Is currently on Aspirin and Plavix and reports that he is no a surgical candidate for this. Had reported to provider in ED that he had been feeling more weak as of late. No dizziness, chest pain or shortness of breath. Labs noted to have sodium of only 116. Admitted for IV normal saline. Diagnosis: Stroke: No Modified [place] Scale: No Symptoms at All Modified [place] Scale Score: 0 - Discharge Data Discharge Date: 01/09/18 Discharge Disposition: Home, Home Health Agency 06 Condition: Good - Discharge Diagnosis/Problem(s) (1) COPD (chronic obstructive pulmonary disease) SNOMED Code(s): 59774208 ICD Code: J44.9 - CHRONIC OBSTRUCTIVE PULMONARY DISEASE, UNSPECIFIED Status : Acute Priority: High Qualifiers: COPD type: COPD with acute lower respiratory infection Qualified Code(s): J44.0 - Chronic obstructive pulmonary disease with acute lower respiratory infection (2) Hyponatremia SNOMED Code(s): 14290116 ICD Code: E87.1 - HYPO-OSMOLALITY AND HYPONATREMIA Status: Acute Priority : High (3) Syncopal episodes SNOMED Code(s): 723394796 ICD Code: R55 - SYNCOPE AND COLLAPSE Status: Acute Priority: High Qualifiers: Encounter type: initial encounter (4) Hypomagnesemia SNOMED Code(s): 619679857 ICD Code: E83.42 - HYPOMAGNESEMIA Status: Acute Priority: High - Patient Summary/Data Complications: none Hospital Course: Patient has felt well during hospitalization. Magnesium only 1.1 am of admission, sodium 119 four hours after admission. Magnesium sulfate bump ordered and continued IV normal saline. He denied any further lightheadedness. No muscle ache or cramping. Did have difficulty keep magnesium up to therapeutic level despite receiving 3 IV 2 gm doses. Started on oral magnesium as well. Sodium recovered to 124-126 range. No DTs during admission. Up and ambulating, appetite good. Concerns with questionable infiltrate, crackles in lungs. Covered with IV Levaquin and neb treatments. Given 2 gm of IV Magnesium prior to discharge. Will need follow up for repeat labs next week with Dr. Bassett. - Patient Instructions Diet: Usual Diet as Tolerated Activity: As Tolerated - Discharge Plan *PRESCRIPTION DRUG MONITORING PROGRAM REVIEWED*: Not Applicable *COPY OF PRESCRIPTION DRUG MONITORING REPORT IN PATIENT GUZMAN: Not Applicable Prescriptions/Med Rec: Levofloxacin [Levaquin] 500 mg PO DAILY #7 tablet Magnesium Chloride [Mag-64] 64 mg PO BID #60 tab.er Home Medications: Home Meds Lisinopril 20 mg PO DAILY 04/25/14 [History] Multivitamins [Tab-A-Dennys] 1 tab PO DAILY 04/25/14 [History] Simvastatin [Zocor] 20 mg PO BEDTIME 04/25/14 [History] Aspirin [Halfprin] 81 mg PO DAILY #100 tab.ec 01/05/16 [Rx] Clopidogrel [Plavix] 75 mg PO DAILY #30 tablet 01/05/16 [Rx] amLODIPine [Norvasc] 10 mg PO BEDTIME #30 tablet 01/05/16 [Rx] Albuterol/Ipratropium [DuoNeb 3.0-0.5 MG/3 ML] 3 ml INH QID 01/06/18 [History] Cholecalciferol (Vitamin D3) [Vitamin D3] 2,000 units PO DAILY 01/06/18 [History ] Metoprolol Succinate 50 mg PO DAILY 01/06/18 [History] Levofloxacin [Levaquin] 500 mg PO DAILY #7 tablet 01/09/18 [Rx] Magnesium Chloride [Mag-64] 64 mg PO BID #60 tab.er 01/09/18 [Rx] Forms: ED Department Discharge Referrals: Des Bassett MD [Primary Care Provider] - (Follow up with Dr. Bassett in one week. Will need recheck of his BMP and magnesium at that time) - Discharge Summary/Plan Comment DC Time >30 min.: No Discharge Summary/Plan Comment: Discharge home Levaquin 500 mg daily for 7 days Slo Mag 64 mg BID Repeat labs with Dr. Bassett next week. - General Info Date of Service: 01/09/18 Admission Dx/Problem (Free Text: Hyponatremia Functional Status: Reports: Pain Controlled, Tolerating Diet, Ambulating - Review of Systems General: Denies: Fever, Weakness, Fatigue HEENT: Reports: No Symptoms Pulmonary: Reports: Cough. Denies: Shortness of Breath Cardiovascular: Denies: Chest Pain, Edema, Lightheadedness Gastrointestinal: Denies: Abdominal Pain, Nausea, Vomiting Genitourinary: Reports: No Symptoms Musculoskeletal: Reports: No Symptoms Skin: Reports: No Symptoms Neurological: Reports: No Symptoms - Patient Data Vitals - Most Recent: Last Vital Signs Temp 96.7 F 01/09/18 11:47 Pulse 95 01/09/18 11:47 Resp 16 01/09/18 11:47 BP 130/75 01/09/18 11:47 Pulse Ox 95 01/09/18 11:47 Weight - Most Recent: 122 lb 6.4 oz Med Orders - Current: Current Medications Discontinued Medications Acetaminophen (Tylenol) 650 mg PO Q4H PRN PRN Reason: Pain (Mild 1-3)/fever Albuterol/Ipratropium (Duoneb 3.0-0.5 Mg/3 Ml) 3 ml INH QID [facility] Last Admin: 01/09/18 11:57 Dose: 3 ml Amlodipine Besylate (Norvasc) 10 mg PO BEDTIME [facility] Last Admin: 01/08/18 19:43 Dose: 10 mg Aspirin (Halfprin) 81 mg PO DAILY [facility] Last Admin: 01/09/18 07:48 Dose: 81 mg Ceftriaxone Sodium (Rocephin) 1 gm IVPUSH Q24H [facility] Last Admin: 01/06/18 05:28 Dose: 1 gm Ceftriaxone Sodium (Rocephin) 1 gm IVPUSH DAILY [facility] Last Admin: 01/07/18 08:17 Dose: 1 gm Clopidogrel Bisulfate (Plavix) 75 mg PO DAILY [facility] Last Admin: 01/09/18 07:48 Dose: 75 mg Enoxaparin Sodium (Lovenox) 30 mg SUBCUT Q24H [facility] Last Admin: 01/06/18 04:54 Dose: Not Given Enoxaparin Sodium (Lovenox) 40 mg SUBCUT Q24H [facility] Last Admin: 01/06/18 05:28 Dose: 40 mg Enoxaparin Sodium (Lovenox) 40 mg SUBCUT DAILY [facility] Last Admin: 01/09/18 07:47 Dose: 40 mg Sodium Chloride (Normal Saline) 1,000 mls @ 125 mls/hr IV ASDIRECTED [facility] Last Admin: 01/09/18 03:15 Dose: 125 mls/hr Azithromycin 500 mg/ Sodium (Chloride) 250 mls @ 250 mls/hr IV Q24H [facility] Last Admin: 01/06/18 05:28 Dose: 250 mls/hr Azithromycin 500 mg/ Sodium (Chloride) 250 mls @ 250 mls/hr IV DAILY [facility] Last Admin: 01/07/18 08:23 Dose: 250 mls/hr Thiamine HCl 100 mg/ Sodium (Chloride) 101 mls @ 202 mls/hr IV ONETIME ONE Stop: 01/06/18 15:13 Last Admin: 01/06/18 15:59 Dose: 202 mls/hr Magnesium Sulfate/Dextrose 2 (gm/ Premix) 200 mls @ 100 mls/hr IV ONETIME ONE Stop: 01/06/18 20:09 Last Admin: 01/06/18 18:30 Dose: 100 mls/hr Magnesium Sulfate/Dextrose 2 (gm/ Premix) 200 mls @ 100 mls/hr IV ONETIME ONE Stop: 01/07/18 11:02 Last Admin: 01/07/18 10:07 Dose: 100 mls/hr Levofloxacin/Dextrose 500 mg/ (Premix) 100 mls @ 100 mls/hr IV DAILY [facility] Levofloxacin/Dextrose 500 mg/ (Premix) 100 mls @ 100 mls/hr IV DAILY@1200 [facility] Last Admin: 01/09/18 14:07 Dose: Not Given Magnesium Sulfate/Dextrose 2 (gm/ Premix) 200 mls @ 100 mls/hr IV ONETIME ONE Stop: 01/08/18 10:30 Last Admin: 01/08/18 08:39 Dose: 100 mls/hr Magnesium Sulfate/Dextrose 2 (gm/ Premix) 200 mls @ 100 mls/hr IV ONETIME ONE Stop: 01/09/18 13:47 Last Admin: 01/09/18 12:09 Dose: 100 mls/hr Lisinopril (Prinivil) 20 mg PO DAILY [facility] Last Admin: 01/09/18 07:48 Dose: 20 mg Magnesium Oxide (Magnesium Oxide) 250 mg PO BIDM [facility] Magnesium Oxide (Magnesium Oxide) 250 mg PO BIDM [facility] Last Admin: 01/09/18 07:48 Dose: 250 mg Metoprolol Succinate (Toprol Xl) 50 mg PO DAILY [facility] Last Admin: 01/09/18 07:47 Dose: 50 mg Nicotine (Habitrol) 21 mg TRDERM DAILY [facility] Last Admin: 01/09/18 07:47 Dose: 21 mg Simvastatin (Zocor) 20 mg PO BEDTIME [facility] Last Admin: 01/08/18 19:43 Dose: 20 mg Temazepam (Restoril) 15 mg PO BEDTIME PRN PRN Reason: Sleep Last Admin: 01/06/18 23:40 Dose: 15 mg Thiamine HCl (Vitamin B-1) Confirm Administered Dose 200 mg .ROUTE .STK-MED ONE Stop: 01/06/18 15:59 Last Admin: 01/06/18 16:00 Dose: Not Given - Exam General: Reports: Alert, Oriented HEENT: Reports: Mucous Membr. Moist/[place] Neck: Reports: Supple Lungs: Reports: Decreased Breath Sounds, Crackles Cardiovascular: Reports: Regular Rate, Regular Rhythm GI/Abdominal Exam: Normal Bowel Sounds, Soft, Non-Tender Skin: Reports: Warm, Dry Neurological: Reports: No New Focal Deficit
== END 2018-01-09 14:39 | disposition home health service (06) | DRG 641 ==
LOC: CC.ED 01:21 → CC.MS 03:15
PROVIDERS: ADMIT Nurse Practitioner Family; ATTEND Family Medicine
DX: R55 Syncope and collapse (principal); E87.1 Hypo-osmolality and hyponatremia; E83.42 Hypomagnesemia; I25.10 Atherosclerotic heart disease of native coronary artery without angina pectoris; J44.9 Chronic obstructive pulmonary disease, unspecified; I10 Essential (primary) hypertension; E78.5 Hyperlipidemia, unspecified; I73.9 Peripheral vascular disease, unspecified; F17.210 Nicotine dependence, cigarettes, uncomplicated; S01.81XA Laceration without foreign body of other part of head, initial encounter; W19.XXXA Unspecified fall, initial encounter; H54.7 Unspecified visual loss; Z86.73 Personal history of transient ischemic attack (TIA), and cerebral infarction without residual deficits; Z79.02 Long term (current) use of antithrombotics/antiplatelets; Z79.82 Long term (current) use of aspirin; Z79.899 Other long term (current) drug therapy; Z96.659 Presence of unspecified artificial knee joint
CPT/HCPCS: 36415; 70450; 71046; 80048; 80053; 81001; 82550; 83615; 83735; 84484; 85025; 86140; 93005; 93010; 94640; 99285; A9270-GY; J0456; J0696; J1650; J1956; J3411; J3475; J7030; J7050; J7620-GY

== ENCOUNTER 2018-06-11 08:42 | Emergency (ER) | payer MEDICARE, MEDICAID ==
[2018-06-11 09:15] LABS: CHLORIDE,CL 86 mEq/L (98-106)
[2018-06-11 09:24] LABS: SODIUM,NA 120 mEq/L (136-145)
[2018-06-11] MEDS: Sodium Chloride 0.9% 1,000 ML IV SCH (09:35)
[2018-06-11 11:22] VITALS: BP 146/88
--- NOTE | 2018-06-11 13:31 | EDM.PDOC ---
ED HPI GENERAL MEDICAL PROBLEM - General Chief Complaint: Upper Extremity Injury/Pain Stated Complaint: palm of hand numb Time Seen by Provider: 06/11/18 08:55 Source of Information: Reports: Patient, Family (sister) History Limitations: Reports: No Limitations - History of Present Illness INITIAL COMMENTS - FREE TEXT/NARRATIVE: States that when he woke up in the middle of the night he noted that his right hand was numb and tingling. He felt normal otherwise. He did go back to bed and slept the rest of the night. When he woke up this AM he noted that he still had some numbness in the palm of his hand. He denied tingling. Denied any other discomfort or weakness. Sister states that he has had TIA in the past and Dr. Bassett has told him he has a bad heart and he won't quit smoking. He states that his hand feels weaker but overall he feels good. He denies noting any facial droop or leg weakness. He has tried to "shake it off" without improvement. Location: Reports: Upper Extremity, Right Quality: Reports: Other (numbness) Associated Symptoms: Reports: No Other Symptoms - Related Data Allergies Allergy/AdvReac Type Severity Reaction Status Date / Time No Known Allergies Allergy Verified 06/11/18 08:58 Home Meds: Home Meds Lisinopril 20 mg PO DAILY 04/25/14 [History] Multivitamins [Tab-A-Dennys] 1 tab PO DAILY 04/25/14 [History] Simvastatin [Zocor] 20 mg PO BEDTIME 04/25/14 [History] Aspirin [Halfprin] 81 mg PO DAILY #100 tab.ec 01/05/16 [Rx] Clopidogrel [Plavix] 75 mg PO DAILY #30 tablet 01/05/16 [Rx] amLODIPine [Norvasc] 10 mg PO BEDTIME #30 tablet 01/05/16 [Rx] Albuterol/Ipratropium [DuoNeb 3.0-0.5 MG/3 ML] 3 ml INH QID 01/06/18 [History] Cholecalciferol (Vitamin D3) [Vitamin D3] 2,000 units PO DAILY 01/06/18 [History ] Metoprolol Succinate 50 mg PO DAILY 01/06/18 [History] Levofloxacin [Levaquin] 500 mg PO DAILY #7 tablet 01/09/18 [Rx] Magnesium Chloride [Mag-64] 64 mg PO BID #60 tab.er 01/09/18 [Rx] Past Medical History HEENT History: Reports: Impaired Vision Other HEENT History: 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 Cardiovascular History: Reports: CAD, High Cholesterol, Hypertension Neurological History: Reports: TIA - Past Surgical History GI Surgical History: Reports: Colonoscopy Musculoskeletal Surgical History: Reports: Knee Replacement Social & Family History - Family History Family Medical History: Noncontributory - Tobacco Use Smoking Status *Q: Current Every Day Smoker Years of Tobacco use: 45 Packs/Tins Daily: 2 - Caffeine Use Caffeine Use: Reports: Coffee - Alcohol Use Days Per Week of Alcohol Use: 7 Number of Drinks Per Day: 2 Total Drinks Per Week: 14 - Recreational Drug Use Recreational Drug Use: No - Living Situation & Occupation Living situation: Reports: Single, Alone Review of Systems - Review of Systems Review Of Systems: See Below Constitutional: Denies: Fever, Weakness Eyes: Reports: No Symptoms Ears: Reports: No Symptoms Mouth/Throat: Reports: No Symptoms Respiratory: Reports: No Symptoms Cardiovascular: Denies: Chest Pain, Edema GI/Abdominal: Reports: No Symptoms Genitourinary: Reports: No Symptoms Musculoskeletal: Reports: No Symptoms Skin: Reports: No Symptoms Neurological: Reports: Numbness (to the palm of the right hand.) Psychiatric: Denies: Depression, Anxiety ED EXAM, GENERAL - Physical Exam Exam: See Below Exam Limited By: No Limitations General Appearance: Alert, WD/WN, No Apparent Distress. No: Anxious Ears: Normal External Exam, Normal TMs Throat/Mouth: Normal Inspection, Normal Oropharynx Head: Atraumatic, Normocephalic Neck: Normal Inspection, Supple, Non-Tender Respiratory/Chest: No Respiratory Distress, Wheezing (occasional expiratory wheezing noted. "That is normal for me because I won't quit smoking") Cardiovascular: Regular Rate, Rhythm, No Edema GI/Abdominal: Normal Bowel Sounds, Soft, Non-Tender Back Exam: Normal Inspection, Full Range of Motion Extremities: Normal Inspection, Normal Range of Motion, No Pedal Edema, Normal Capillary Refill Neurological: Alert, Oriented, Normal Cognition, Sensory/Motor Deficit (the palm of the right hand has decrease in sensation compared to the left hand. Back of the hand has normal sensation compared to the left. pulses are equal bilaterally.) Psychiatric: Normal Affect Skin Exam: Warm, Dry, Normal Color Course - Vital Signs Last Recorded V/S: Last Vital Signs Temp 96.6 F 06/11/18 11:07 Pulse 84 06/11/18 11:07 Resp 20 06/11/18 11:07 BP 146/88 H 06/11/18 11:07 Pulse Ox 100 06/11/18 11:07 - Orders/Labs/Meds Labs: Laboratory Tests 06/11/18 06/11/18 06/11/18 Range/Units 08:57 09:00 13:27 WBC 9.4 (5.0-10.0) 10^3/uL RBC 3.54 L (4.50-6.00) 10^6/uL Hgb 9.1 L (14.0-18.0) g/dL Hct 28.3 L (40.0-54.0) % MCV 79.9 L (82.0-94.0) fL MCH 25.7 L (27.0-32.0) pg MCHC 32.2 L (33.0-38.0) g/dL RDW Coeff of Patrick 17.9 H (11.0-15.0) % Plt Count 415 H (150-400) 10^3/uL Neut % (Auto) 65.6 (35-85) % Lymph % (Auto) 16.1 (10-55) % Price % (Auto) 13.1 (0-16) % Eos % (Auto) 4.8 (0-5) % Baso % (Auto) 0.4 (0-3) % Neut # (Auto) 6.13 (1.80-7.00) 10^3/uL Lymph # (Auto) 1.51 (1.00-4.80) 10^3/uL Price # (Auto) 1.23 H (0.00-0.80) 10^3/uL Eos # (Auto) 0.45 (0.00-0.45) 10^3/uL Baso # (Auto) 0.04 10^3/uL Sodium 120 L* 124 L* (136-145) mEq/L Potassium 5.2 H (3.5-5.0) mEq/L Chloride 86 L (98-106) mEq/L Carbon Dioxide 27 (21-32) mmol/L BUN 10 (7-18) mg/dL Creatinine 0.9 (0.7-1.3) mg/dL Est Cr Clr Drug Dosing 64.61 mL/min Estimated GFR (MDRD) > 60 (>=60) mL/min Glucose 94 D (75-99) mg/dL Calcium 9.5 (8.4-10.1) mg/dL Meds: Medications Discontinued Medications Generic Name Dose Route Start Last Admin Trade Name Sabinoq PRN Reason Stop Dose Admin Sodium Chloride 1,000 mls @ 250 mls/hr 06/11/18 09:30 06/11/18 09:35 Normal Saline IV 250 mls/hr ASDIRECTED [facility] Administration - Re-Assessments/Exams Free Text/Narrative Re-Assessment/Exam: 06/11/18 09:30 Discussed lab values with pt and sister. States that he has had low sodium in the past and Dr. Bassett has worked him up for it and was told to watch how much he drinks but he has never restricted his fluids. He will get one liter of saline and then recheck sodium. He states that he has appt with Dr. Bassett in the AM in [place] and will discuss it with him at that time. 06/11/18 1100- Discussed that sodium has improved slightly but is still low. Would like to follow up with Dr. Bassett tomorrow and go home today as he states this is a chronic problem for him. He states that the palm of his hand is slightly better at this time and denies any other numbness. No headaches, dizziness or weakness. Will discharge per pt request. Departure - Departure Time of Disposition: 13:29 Disposition: Home, Self-Care 01 Condition: Fair Clinical Impression: Acute hyponatremia, Neuropathy of right hand - Discharge Information *PRESCRIPTION DRUG MONITORING PROGRAM REVIEWED*: Not Applicable *COPY OF PRESCRIPTION DRUG MONITORING REPORT IN PATIENT GUZMAN: Not Applicable Referrals: Yamile Rao PA-C [Primary Care Provider] - Forms: ED Department Discharge Additional Instructions: Keep appt with Dr. Bassett tomorrow recheck if any new changes or concerns noted - Problem List & Annotations (1) Neuropathy of right hand SNOMED Code(s): 363490071 Code(s): G56.91 - UNSPECIFIED MONONEUROPATHY OF RIGHT UPPER LIMB Status: Acute Priority: High (2) Acute hyponatremia SNOMED Code(s): 0545055 Code(s): E87.1 - HYPO-OSMOLALITY AND HYPONATREMIA Status: Acute Priority : High - Problem List Review Problem List Initiated/Reviewed/Updated: Yes
== END 2018-06-11 13:45 | disposition home or self-care (01) ==
LOC: CC.ED 08:42
DX: G56.91 Unspecified mononeuropathy of right upper limb (principal); E87.1 Hypo-osmolality and hyponatremia; E78.00 Pure hypercholesterolemia, unspecified; I10 Essential (primary) hypertension; F17.210 Nicotine dependence, cigarettes, uncomplicated; Z79.82 Long term (current) use of aspirin; Z79.899 Other long term (current) drug therapy
CPT/HCPCS: 36415; 80048; 84295; 85025; 96360; 96361; 99283-25; J7030

== ENCOUNTER 2019-05-14 11:26 | Inpatient (IN) | payer MEDICAID, MEDICARE ==
[2019-05-14] MEDS ORDERED: Sodium Chloride 0.9% 10 ML Syringe FLUSH PRN (12:29)
[2019-05-14] MEDS ORDERED: Ondansetron 4 MG Tab.DIS PO PRN (12:29)
[2019-05-14] MEDS: methylPREDNISolone Sodium Succinate 125 MG/2 ML SDV IVPUSH SCH (13:09)
[2019-05-14 13:11] LABS: O2 DELIVERY DEVICE ROOM AIR
[2019-05-14 13:14] LABS: BICARBONATE,ARTERIAL 28.5 mm/L (22.0-26.0); O2 SATURATION ARTERIAL 91 % (95-98); PCO2 ARTERIAL 39 mm/Hg0 (35-45); PO2 ARTERIAL 57 mm/Hg (80-100)
[2019-05-14] MEDS: cefTRIAXone 1 GM Vial IVPUSH SCH (13:14)
[2019-05-14] MEDS: Azithromycin 500 MG in Sodium Chloride 0.9% 250 ML IV SCH (13:19)
[2019-05-14 13:20] LABS: CHLORIDE,CL 90 mEq/L (98-106); SODIUM,NA 129 mEq/L (136-145)
[2019-05-14] MEDS ORDERED: Sodium Chloride 0.9% 1,000 ML IV ONE (13:54)
[2019-05-14] MEDS: Enoxaparin 40 MG/0.4 ML Syringe SUBCUT SCH (13:55)
[2019-05-14] MEDS: Nicotine 21 MG/24 Hr Patch TRDERM SCH (13:55)
[2019-05-14] MEDS: Sodium Chloride 0.9% 1,000 ML IV SCH (17:07)
[2019-05-14] MEDS: Albuterol/Ipratropium 3.0-0.5 MG/3 ML Neb Soln NEB SCH (19:28)
[2019-05-14] MEDS: Formoterol/Mometasone 200-5 MCG 8.8 GM Inhaler IH SCH (19:28)
[2019-05-14] MEDS: amLODIPine 10 MG Tab PO SCH (19:28)
[2019-05-14] MEDS: Nystatin Susp 100,000 Unit/ML 5 ML UD Cup PO SCH (19:28)
[2019-05-14] MEDS: Magnesium Chloride 64 MG Tab.ER PO SCH (19:28)
[2019-05-14] MEDS: Simvastatin 20 MG Tab PO SCH (19:28)
[2019-05-14] MEDS ORDERED: Non-Formulary Medication 1 Each (Budesonide/Formoterol Fumarate 2 PUFF) INH SCH (20:00)
[2019-05-15] MEDS: methylPREDNISolone Sodium Succinate 125 MG/2 ML SDV IVPUSH SCH ×2 (00:29→12:20)
[2019-05-15] MEDS: Sodium Chloride 0.9% 1,000 ML IV SCH ×3 (00:29→12:22)
[2019-05-15] MEDS: Nystatin Susp 100,000 Unit/ML 5 ML UD Cup PO SCH ×4 (07:48→19:48)
[2019-05-15] MEDS: Albuterol/Ipratropium 3.0-0.5 MG/3 ML Neb Soln NEB SCH ×2 (07:48→19:48)
[2019-05-15] MEDS: Metoprolol Succinate 25 MG Tab.ER PO SCH (07:48)
[2019-05-15] MEDS: Aspirin 81 MG Tab.EC PO SCH (07:48)
[2019-05-15] MEDS: Formoterol/Mometasone 200-5 MCG 8.8 GM Inhaler IH SCH ×2 (07:49→19:49)
[2019-05-15] MEDS: Lisinopril 20 MG Tab PO SCH (07:49)
[2019-05-15] MEDS: Magnesium Chloride 64 MG Tab.ER PO SCH ×2 (07:49→19:48)
[2019-05-15] MEDS: Clopidogrel 75 MG Tab PO SCH (07:49)
[2019-05-15] MEDS: Nicotine 21 MG/24 Hr Patch TRDERM SCH (07:49)
[2019-05-15] MEDS: Cholecalciferol (Vitamin D3) 25 MCG Tab PO SCH (07:49)
[2019-05-15] MEDS: Multivitamin Tab PO SCH (07:49)
[2019-05-15 08:21] LABS: CHLORIDE,CL 97 mEq/L (98-106); SODIUM,NA 135 mEq/L (136-145)
[2019-05-15] MEDS ORDERED: Potassium Chloride 10 MEQ Tab.ER PO ONE (08:54)
[2019-05-15] MEDS: cefTRIAXone 1 GM Vial IVPUSH SCH (12:20)
[2019-05-15] MEDS: Enoxaparin 40 MG/0.4 ML Syringe SUBCUT SCH (12:20)
[2019-05-15] MEDS: Azithromycin 500 MG in Sodium Chloride 0.9% 250 ML IV SCH (12:21)
--- NOTE | 2019-05-15 18:46 | PCM.PN ---
- General Info Date of Service: 05/15/19 Functional Status: Reports: Pain Controlled, Tolerating Diet, Ambulating ( UNSTEADY) - Review of Systems General: Denies: Fever HEENT: Reports: No Symptoms Pulmonary: Reports: Shortness of Breath, Cough, Sputum Cardiovascular: Reports: No Symptoms Gastrointestinal: Reports: No Symptoms Genitourinary: Reports: No Symptoms Musculoskeletal: Reports: No Symptoms Skin: Reports: No Symptoms Neurological: Reports: No Symptoms Psychiatric: Reports: No Symptoms - Patient Data Vitals - Most Recent: Last Vital Signs Temp 98 F 05/15/19 16:00 Pulse 98 05/15/19 16:00 Resp 18 05/15/19 16:00 BP 122/70 05/15/19 16:00 Pulse Ox 93 L 05/15/19 16:00 Weight - Most Recent: 110 lb 12.8 oz I&O - Last 24 Hours: Intake & Output 05/15/19 05/15/19 05/15/19 06:59 14:59 22:59 Intake Total 1000 1332 Balance 1000 1332 Lab Results Last 24 Hours: Laboratory Results - last 24 hr 05/15/19 05/15/19 Range/Units 05:11 05:11 WBC 12.9 H (5.0-10.0) 10^3/uL RBC 3.43 L (4.50-6.00) 10^6/uL Hgb 8.7 L (14.0-18.0) g/dL Hct 28.4 L (40.0-54.0) % MCV 82.8 (82.0-94.0) fL MCH 25.4 L (27.0-32.0) pg MCHC 30.6 L (33.0-38.0) g/dL RDW Coeff of Patrick 20.4 H (11.0-15.0) % Plt Count 663 H (150-400) 10^3/uL Neut % (Auto) 92.0 H (35-85) % Lymph % (Auto) 3.6 L (10-55) % [place] % (Auto) 4.2 (0-16) % Eos % (Auto) 0.1 (0-5) % Baso % (Auto) 0.1 (0-3) % Neut # (Auto) 11.89 H (1.80-7.00) 10^3/uL Lymph # (Auto) 0.46 L (1.00-4.80) 10^3/uL [place] # (Auto) 0.54 (0.00-0.80) 10^3/uL Eos # (Auto) 0.01 (0.00-0.45) 10^3/uL Baso # (Auto) 0.01 10^3/uL Sodium 135 L (136-145) mEq/L Potassium 2.9 L* (3.5-5.0) mEq/L Chloride 97 L (98-106) mEq/L Carbon Dioxide 28 (21-32) mmol/L BUN 12 (7-18) mg/dL Creatinine 0.8 (0.7-1.3) mg/dL Est Cr Clr Drug Dosing 61.08 mL/min Estimated GFR (MDRD) > 60 (>=60) mL/min Glucose 142 H (75-99) mg/dL Calcium 11.5 H (8.4-10.1) mg/dL Total Bilirubin 0.2 (0.0-1.0) mg/dL AST 25 (15-37) U/L ALT 19 (12-78) U/L Alkaline Phosphatase 87 (46-116) U/L C-Reactive Protein 7.3 H (0.2-0.8) mg/dL Total Protein 6.0 L (6.4-8.2) g/dL Albumin 2.1 L (3.4-5.0) g/dL Med Orders - Current: Current Medications Albuterol/Ipratropium (Duoneb 3.0-0.5 Mg/3 Ml) 3 ml NEB BIDRT [facility] Last Admin: 05/15/19 07:48 Dose: 3 ml Amlodipine Besylate (Norvasc) 10 mg PO BEDTIME [facility] Last Admin: 05/14/19 19:28 Dose: 10 mg Aspirin (Halfprin) 81 mg PO DAILY [facility] Last Admin: 05/15/19 07:48 Dose: 81 mg Ceftriaxone Sodium (Rocephin) 1 gm IVPUSH Q24H [facility] Last Admin: 05/15/19 12:20 Dose: 1 gm Cholecalciferol (Vitamin D3) 50 mcg PO DAILY [facility] Last Admin: 05/15/19 07:49 Dose: 50 mcg Clopidogrel Bisulfate (Plavix) 75 mg PO DAILY [facility] Last Admin: 05/15/19 07:49 Dose: 75 mg Enoxaparin Sodium (Lovenox) 40 mg SUBCUT Q24H [facility] Last Admin: 05/15/19 12:20 Dose: 40 mg Azithromycin 500 mg/ Sodium (Chloride) 250 mls @ 250 mls/hr IV Q24H [facility] Last Admin: 05/15/19 12:21 Dose: 250 mls/hr Sodium Chloride (Normal Saline) 1,000 mls @ 100 mls/hr IV ASDIRECTED [facility] Last Admin: 05/15/19 12:22 Dose: 100 mls/hr Lisinopril (Prinivil) 20 mg PO DAILY [facility] Last Admin: 05/15/19 07:49 Dose: 20 mg Magnesium Chloride (Mag-64) 64 mg PO BID [facility] Last Admin: 05/15/19 07:49 Dose: 64 mg Methylprednisolone Sodium Succinate (Solu-Medrol) 62.5 mg IVPUSH Q12H [facility] Last Admin: 05/15/19 12:20 Dose: 62.5 mg Metoprolol Succinate (Toprol Xl) 50 mg PO DAILY [facility] Last Admin: 05/15/19 07:48 Dose: 50 mg Mometasone Furoate/Formoterol Fumar (Dulera 200-5 Mcg) 2 puff IH BID [facility] Last Admin: 05/15/19 07:49 Dose: 2 puff Multivitamins/Minerals/Vitamin C (Tab-A-Dennys) 1 tab PO DAILY [facility] Last Admin: 05/15/19 07:49 Dose: 1 tab Nicotine (Habitrol) 21 mg TRDERM DAILY [facility] Last Admin: 05/15/19 07:49 Dose: 21 mg Nystatin (Mycostatin) 5 ml PO QID [facility] Last Admin: 05/15/19 16:11 Dose: 5 ml Ondansetron HCl (Zofran Odt) 4 mg PO Q4H PRN PRN Reason: nausea, able to take PO Simvastatin (Zocor) 20 mg PO BEDTIME [facility] Last Admin: 05/14/19 19:28 Dose: 20 mg Sodium Chloride (Saline Flush) 10 ml FLUSH ASDIRECTED PRN PRN Reason: Keep Vein Open Discontinued Medications Sodium Chloride (Normal Saline) 1,000 mls @ 999 mls/hr IV .BOLUS ONE Stop: 05/14/19 14:54 Last Admin: 05/14/19 14:04 Dose: 999 mls/hr Potassium Chloride (Klor-Con 10) 40 meq PO ONETIME ONE Stop: 05/15/19 08:55 Last Admin: 05/15/19 09:02 Dose: 40 meq - Exam Quality Assessment: Supplemental Oxygen (3L [place], 94%) General: Alert, Oriented, Cooperative HEENT: Pupils Equal, Pupils Reactive, Mucous Membr. Moist/[place] Neck: Supple Lungs: Decreased Breath Sounds (moderate throughout), Rhonchi (moderate throughout) Cardiovascular: Regular Rate, Irregular Rhythm (90s controlled) GI/Abdominal Exam: Soft, Non-Tender Back Exam: Normal Inspection Extremities: Normal Inspection, Normal Range of Motion, Non-Tender, Normal Capillary Refill, Pedal Edema (+1 BLE) Peripheral Pulses: 2+: Radial (L), Radial (R), Posterior Tibial (L), Posterior Tibial (R), Dorsalis Pedis (L), Dorsalis Pedis (R) Skin: Warm, Dry, Intact Neurological: No New Focal Deficit Psy/Mental Status: Alert, Normal Affect, Normal Mood Sepsis Event Note - Evaluation Sepsis Screening Result: No Definite Risk - Focused Exam Vital Signs: Vital Signs Temp Pulse Pulse Resp BP BP Pulse Ox 05/15/19 16:00 98 F 98 18 122/70 93 L 05/15/19 12:00 97.3 F 118 H 18 127/71 91 L 05/15/19 07:52 97.7 F 112 H 16 133/82 94 L 05/15/19 07:49 133/82 05/15/19 07:48 116 H 133/82 Date Exam was Performed: 05/15/19 Time Exam was Performed: 18:55 - Problem List Review Problem List Initiated/Reviewed/Updated: Yes - My Orders Last 24 Hours: My Active Orders 05/16/19 05:00 BMP [BASIC METABOLIC PANEL,BMP] [CHEM] DAILY CBC WITH AUTO DIFF [HEME] DAILY CRP [C-REACTIVE PROTEIN] [CHEM] DAILY 05/17/19 05:00 BMP [BASIC METABOLIC PANEL,BMP] [CHEM] DAILY CBC WITH AUTO DIFF [HEME] DAILY CRP [C-REACTIVE PROTEIN] [CHEM] DAILY - Plan Plan:: This patient was admitted for acute COPD exacerbation. His CXR shows severe emphysema. Patient is still on oxygen 3L [place] at 94%. Patient does report shortness of breath. He does report being a little less short of breath than yesterday. Patient reports having a productive cough. Patient labs yesterday were wbc 11.0, potassium 3.4, hbg 9.3, CL 90, Na 129, ca 13.5, crp 8.6. Today labs are wbc 12.9, potassium 2.9, hgb 8.7, chloride 97, na 135, calcium 11.5, crp 7.3. I decreased NS rate. Gave potassium po today. Will evaluate patient and labs tomorrow. I suspect patient will be here a few more days.
[2019-05-15] MEDS: amLODIPine 10 MG Tab PO SCH (19:48)
[2019-05-15] MEDS: Simvastatin 20 MG Tab PO SCH (19:48)
[2019-05-16] MEDS: methylPREDNISolone Sodium Succinate 125 MG/2 ML SDV IVPUSH SCH ×2 (00:20→12:10)
[2019-05-16] MEDS: Sodium Chloride 0.9% 1,000 ML IV SCH ×2 (00:21→10:55)
[2019-05-16] MEDS: Nicotine 21 MG/24 Hr Patch TRDERM SCH (07:30)
[2019-05-16] MEDS: Albuterol/Ipratropium 3.0-0.5 MG/3 ML Neb Soln NEB SCH (07:30)
[2019-05-16] MEDS: Metoprolol Succinate 25 MG Tab.ER PO SCH (07:30)
[2019-05-16] MEDS: Nystatin Susp 100,000 Unit/ML 5 ML UD Cup PO SCH ×4 (07:30→19:13)
[2019-05-16] MEDS: Magnesium Chloride 64 MG Tab.ER PO SCH ×2 (07:32→19:13)
[2019-05-16] MEDS: Cholecalciferol (Vitamin D3) 25 MCG Tab PO SCH (07:32)
[2019-05-16] MEDS: Clopidogrel 75 MG Tab PO SCH (07:32)
[2019-05-16] MEDS: Multivitamin Tab PO SCH (07:32)
[2019-05-16] MEDS: Formoterol/Mometasone 200-5 MCG 8.8 GM Inhaler IH SCH ×2 (07:32→19:13)
[2019-05-16] MEDS: Lisinopril 20 MG Tab PO SCH (07:32)
[2019-05-16] MEDS: Aspirin 81 MG Tab.EC PO SCH (07:32)
[2019-05-16 08:02] LABS: CHLORIDE,CL 102 mEq/L (98-106); SODIUM,NA 140 mEq/L (136-145)
--- NOTE | 2019-05-16 09:55 | PCM.PN ---
- General Info Date of Service: 05/16/19 Functional Status: Reports: Pain Controlled, Tolerating Diet - Review of Systems General: Reports: Weakness (generalized) HEENT: Reports: No Symptoms Pulmonary: Reports: Shortness of Breath, Cough, Sputum Cardiovascular: Reports: No Symptoms Gastrointestinal: Reports: No Symptoms Genitourinary: Reports: No Symptoms Musculoskeletal: Reports: No Symptoms Skin: Reports: No Symptoms Neurological: Reports: No Symptoms Psychiatric: Reports: No Symptoms - Patient Data Vitals - Most Recent: Last Vital Signs Temp 98.2 F 05/16/19 07:35 Pulse 118 H 05/16/19 07:35 Resp 18 05/16/19 07:35 BP 141/88 H 05/16/19 07:35 Pulse Ox 94 L 05/16/19 07:35 Weight - Most Recent: 110 lb 12.8 oz I&O - Last 24 Hours: Intake & Output 05/15/19 05/16/19 05/16/19 21:59 06:59 14:59 Intake Total Balance Lab Results Last 24 Hours: Laboratory Results - last 24 hr 05/16/19 05/16/19 Range/Units 05:00 05:00 WBC 20.4 H* (5.0-10.0) 10^3/uL RBC 3.40 L (4.50-6.00) 10^6/uL Hgb 8.7 L (14.0-18.0) g/dL Hct 28.5 L (40.0-54.0) % MCV 83.8 (82.0-94.0) fL MCH 25.6 L (27.0-32.0) pg MCHC 30.5 L (33.0-38.0) g/dL RDW Coeff of Patrick 21.2 H (11.0-15.0) % Plt Count 706 H (150-400) 10^3/uL Neut % (Auto) 92.1 H (35-85) % Lymph % (Auto) 2.6 L (10-55) % [place] % (Auto) 5.2 (0-16) % Eos % (Auto) 0 (0-5) % Baso % (Auto) 0.1 (0-3) % Neut # (Auto) 18.78 H (1.80-7.00) 10^3/uL Lymph # (Auto) 0.54 L (1.00-4.80) 10^3/uL [place] # (Auto) 1.06 H (0.00-0.80) 10^3/uL Eos # (Auto) 0.01 (0.00-0.45) 10^3/uL Baso # (Auto) 0.02 10^3/uL Sodium 140 (136-145) mEq/L Potassium 3.7 D (3.5-5.0) mEq/L Chloride 102 (98-106) mEq/L Carbon Dioxide 27 (21-32) mmol/L BUN 16 (7-18) mg/dL Creatinine 1.0 (0.7-1.3) mg/dL Est Cr Clr Drug Dosing 48.86 mL/min Estimated GFR (MDRD) > 60 (>=60) mL/min Glucose 138 H (75-99) mg/dL Calcium 11.4 H (8.4-10.1) mg/dL C-Reactive Protein 2.9 H (0.2-0.8) mg/dL Med Orders - Current: Current Medications Albuterol/Ipratropium (Duoneb 3.0-0.5 Mg/3 Ml) 3 ml NEB BIDRT [facility] Last Admin: 05/16/19 07:30 Dose: 3 ml Amlodipine Besylate (Norvasc) 10 mg PO BEDTIME [facility] Last Admin: 05/15/19 19:48 Dose: 10 mg Aspirin (Halfprin) 81 mg PO DAILY [facility] Last Admin: 05/16/19 07:32 Dose: 81 mg Ceftriaxone Sodium (Rocephin) 1 gm IVPUSH Q24H [facility] Last Admin: 05/15/19 12:20 Dose: 1 gm Cholecalciferol (Vitamin D3) 50 mcg PO DAILY [facility] Last Admin: 05/16/19 07:32 Dose: 50 mcg Clopidogrel Bisulfate (Plavix) 75 mg PO DAILY [facility] Last Admin: 05/16/19 07:32 Dose: 75 mg Enoxaparin Sodium (Lovenox) 40 mg SUBCUT Q24H [facility] Last Admin: 05/15/19 12:20 Dose: 40 mg Azithromycin 500 mg/ Sodium (Chloride) 250 mls @ 250 mls/hr IV Q24H [facility] Last Admin: 05/15/19 12:21 Dose: 250 mls/hr Sodium Chloride (Normal Saline) 1,000 mls @ 100 mls/hr IV ASDIRECTED [facility] Last Admin: 05/16/19 00:21 Dose: 100 mls/hr Lisinopril (Prinivil) 20 mg PO DAILY [facility] Last Admin: 05/16/19 07:32 Dose: 20 mg Magnesium Chloride (Mag-64) 64 mg PO BID [facility] Last Admin: 05/16/19 07:32 Dose: 64 mg Methylprednisolone Sodium Succinate (Solu-Medrol) 62.5 mg IVPUSH Q12H [facility] Last Admin: 05/16/19 00:20 Dose: 62.5 mg Metoprolol Succinate (Toprol Xl) 50 mg PO DAILY [facility] Last Admin: 05/16/19 07:30 Dose: 50 mg Mometasone Furoate/Formoterol Fumar (Dulera 200-5 Mcg) 2 puff IH BID [facility] Last Admin: 05/16/19 07:32 Dose: 2 puff Multivitamins/Minerals/Vitamin C (Tab-A-Dennys) 1 tab PO DAILY [facility] Last Admin: 05/16/19 07:32 Dose: 1 tab Nicotine (Habitrol) 21 mg TRDERM DAILY [facility] Last Admin: 05/16/19 07:30 Dose: 21 mg Nystatin (Mycostatin) 5 ml PO QID [facility] Last Admin: 05/16/19 07:30 Dose: 5 ml Ondansetron HCl (Zofran Odt) 4 mg PO Q4H PRN PRN Reason: nausea, able to take PO Simvastatin (Zocor) 20 mg PO BEDTIME [facility] Last Admin: 05/15/19 19:48 Dose: 20 mg Sodium Chloride (Saline Flush) 10 ml FLUSH ASDIRECTED PRN PRN Reason: Keep Vein Open Discontinued Medications Sodium Chloride (Normal Saline) 1,000 mls @ 999 mls/hr IV .BOLUS ONE Stop: 05/14/19 14:54 Last Admin: 05/14/19 14:04 Dose: 999 mls/hr Potassium Chloride (Klor-Con 10) 40 meq PO ONETIME ONE Stop: 05/15/19 08:55 Last Admin: 05/15/19 09:02 Dose: 40 meq - Exam General: Alert, Cooperative HEENT: Pupils Reactive, EOMI, Mucous Membr. Moist/[place], Other (pupils mildly different sizes. Chronic, as patient reports left eye injury as kid and thats his normal. ) Neck: Supple, Trachea Midline Lungs: Decreased Breath Sounds, Rhonchi Cardiovascular: Tachycardia GI/Abdominal Exam: Soft, Non-Tender (120 this morning) Back Exam: Normal Inspection Extremities: Normal Inspection, Normal Range of Motion, Non-Tender, No Pedal Edema, Normal Capillary Refill Peripheral Pulses: 2+: Radial (L), Radial (R), Posterior Tibial (L), Posterior Tibial (R), Dorsalis Pedis (L), Dorsalis Pedis (R) Skin: Warm, Dry, Intact Neurological: Strength Equal Bilateral, Sensation Intact, Other (Patient is alet , but not oriented to place or time. He is oriented to self. The patient talking about going to [place] to fix his cell phone, then driving [place] tomorrow. Patient appears delirious.) Psy/Mental Status: Withdrawal Symptoms (mild tremors) Sepsis Event Note - Evaluation Sepsis Screening Result: No Definite Risk - Focused Exam Vital Signs: Vital Signs Temp Pulse Pulse Resp BP BP Pulse Ox 05/16/19 07:35 98.2 F 118 H 18 141/88 H 94 L 05/16/19 07:32 141/88 H 05/16/19 07:30 106 H 141/88 H 05/16/19 03:38 98.8 F 115 H 18 148/83 H 95 05/16/19 00:00 97.2 F 120 H 20 122/82 93 L Date Exam was Performed: 05/16/19 Time Exam was Performed: 15:26 - Problem List Review Problem List Initiated/Reviewed/Updated: Yes - My Orders Last 24 Hours: My Active Orders 05/16/19 09:00 EKG 12 Lead [EK] Routine 05/16/19 09:46 Head wo Cont [CT] Stat 05/17/19 05:00 BMP [BASIC METABOLIC PANEL,BMP] [CHEM] DAILY CBC WITH AUTO DIFF [HEME] DAILY CRP [C-REACTIVE PROTEIN] [CHEM] DAILY - Plan Plan:: 05/15/2019 0800 This patient was admitted for acute COPD exacerbation. His CXR shows severe emphysema. Patient is still on oxygen 3L [place] at 94%. Patient does report shortness of breath. He does report being a little less short of breath than yesterday. Patient reports having a productive cough. Patient labs yesterday were wbc 11.0, potassium 3.4, hbg 9.3, CL 90, Na 129, ca 13.5, crp 8.6. Today labs are wbc 12.9, potassium 2.9, hgb 8.7, chloride 97, na 135, calcium 11.5, crp 7.3. I decreased NS rate. Gave potassium po today. Will evaluate patient and labs tomorrow. I suspect patient will be here a few more days. 05/16/2019 0930 The patient today wbc is 20,000. However, he is on steroids. Patient others labs today appear unremarkable. I was told by the nurse today that the patient this morning has not been acting himself, he has been more restless, and a little confused today. The patient does not have any unilateral weaknesses. He appears generally weak. He talks about going to [place] today to get his cell phone fixed then driving to [place] tomorrow. The patient is unware of where he is. He believes he is in [place]. The patient today has had some mild tremors. His HR is also 120s today. I have ordered EKG due to tachycardia vs a- fib. The patient could be having alcohol withdraw. I have ordered a head ct and ekg. If the Head ct is not acute, I will order beer for this patient to have in the hospital. He reports he drinks a 6 pack daily for years and has not had any beer since admit. The patient is alert, but not oriented. 05/16/[address] shows no acute changes. His EKG is rate of 115 a-fib. I believe the patient might be having delirium. Started him on beer per meal. Ordered Ativan as needed. I have also increased his Metoprolol to 75mg daily, 25mg more to be given now to increase the dose today. Again, patient labs today appear unremarkable and improved. His potassium is normal and his CA is nearly unchanged from yesterday. I will change his duonebs to albuterol due to his uncontrolled a-fib and cardiovascular risks. I will change this to TID scheduled. I have slowed his rate of fluids to 75ml/hr for near kvo. Patient will see PCP tomorrow for eval. Patient oxygen saturation is 94% on 3L [place].
[2019-05-16] MEDS: Enoxaparin 40 MG/0.4 ML Syringe SUBCUT SCH (12:10)
[2019-05-16] MEDS: Azithromycin 500 MG in Sodium Chloride 0.9% 250 ML IV SCH (12:10)
[2019-05-16] MEDS: cefTRIAXone 1 GM Vial IVPUSH SCH (12:10)
[2019-05-16] MEDS ORDERED: Metoprolol Succinate 25 MG Tab.ER PO ONE (15:16)
[2019-05-16] MEDS: Albuterol 0.083% 2.5 MG/3 ML Neb Soln NEB SCH ×2 (17:34→19:13)
[2019-05-16] MEDS ORDERED: Albuterol 0.083% 2.5 MG/3 ML Neb Soln ONE (17:45)
[2019-05-16] MEDS ORDERED: Albuterol/Ipratropium 3.0-0.5 MG/3 ML Neb Soln NEB ONE (18:41)
[2019-05-16] MEDS ORDERED: Albuterol/Ipratropium 3.0-0.5 MG/3 ML Neb Soln ONE (18:59)
[2019-05-16] MEDS: Simvastatin 20 MG Tab PO SCH (19:13)
[2019-05-16] MEDS: amLODIPine 10 MG Tab PO SCH (19:13)
[2019-05-16] MEDS ORDERED: Furosemide 40 MG/4 ML VIAL IVPUSH ONE (19:24)
[2019-05-16 19:28] LABS: BICARBONATE,ARTERIAL 23.6 mm/L (22.0-26.0); O2 DELIVERY DEVICE NASAL CANNULA; O2 SATURATION ARTERIAL 91 % (95-98); PCO2 ARTERIAL 44 mm/Hg0 (35-45); PO2 ARTERIAL 64 mm/Hg (80-100)
[2019-05-16] MEDS ORDERED: Diltiazem 25 MG/5 ML SDV IVPUSH ONE (19:41)
--- NOTE | 2019-05-16 20:20 | PCM.SN ---
- Free Text/Narrative Note: 05/16/2019 1833 I was called by RN Mica about this patient. She reports she got the patient up to the bathroom, he began to have increased shortness of breath, dusky color per RN, and oxygen saturation was down in the 70s. She reports she increased his oxygen to 5L NC, got him back in bed. I came in to see the patient. The patient was in respiratory distress breathing about 30 times a minute, pursed lips breathing. The patient oxygen saturation was 90% on 5L NC. Patient was not moving much air, decreased all throughout and sounded fluid overloaded, without extremity edema. Fluids were discontinued completely. Lasix 40mg IV ordered. Duoneb given now. I ordered an EKG, portable CXR, BNP, Troponin, and ABG. Patient denies chest pain. He reports being short of breath. 05/16/20191851 EKG is rate of 126 rapid a-fib. I ordered Cardizem 10mg IV push. CXR shows fluid overload, will allow radiologist to stat read. His BNP is elevated. I ordered Lasix 40mg IV. His troponin is 0.8. I called and spoke to Dr. Burch hospitalist at [facility] about this patient. He has accepted the patient. Reports to give that Cardizem dose, the lasix. He reports to leave the patient on the 5L NC, currently saturation of 97%. He reports if the patient is having chest to give heparin and asa. But, at this time the patient does not have any chest pain, so will hold on those orders at this time. The patient signed on Friday a Full Code. Patient is alert. He is oriented to self, but not time or place. Will transfer patient ALS ground.
[2019-05-16 20:28] VITALS: BP 149/78; PULSE 110
--- NOTE | 2019-05-16 21:52 | PCM.DCSUM1 ---
Discharge Summary - Hospital Course HPI Initial Comments: PLEASE SEE RECENT CHARTED PROGRESS/SIMPLE NOTE. - Discharge Data Discharge Date: 05/16/19 Discharge Disposition: DC/Tfer to Acute Hospital 02 Condition: Critical - Referral to Home Health Primary Care Physician: KEMAR Philip - Discharge Plan *PRESCRIPTION DRUG MONITORING PROGRAM REVIEWED*: Not Applicable *COPY OF PRESCRIPTION DRUG MONITORING REPORT IN PATIENT GUZMAN: Not Applicable Home Medications: Home Meds Lisinopril 20 mg PO DAILY 04/25/14 [History] Multivitamins [Tab-A-Dennys] 1 tab PO DAILY 04/25/14 [History] Simvastatin [Zocor] 20 mg PO BEDTIME 04/25/14 [History] Aspirin [Halfprin] 81 mg PO DAILY #100 tab.ec 01/05/16 [Rx] Clopidogrel [Plavix] 75 mg PO DAILY #30 tablet 01/05/16 [Rx] amLODIPine [Norvasc] 10 mg PO BEDTIME #30 tablet 01/05/16 [Rx] Cholecalciferol (Vitamin D3) [Vitamin D3] 2,000 units PO DAILY 01/06/18 [History ] Metoprolol Succinate 50 mg PO DAILY 01/06/18 [History] Magnesium Chloride [Mag-64] 64 mg PO BID #60 tab.er 01/09/18 [Rx] Budesonide/Formoterol Fumarate [Symbicort 160-4.5 Mcg Inhaler] 2 puff INH BID [History] Oxygen Therapy Mode: Nasal Cannula Oxygen Flow Rate (L/min): 5 - Discharge Summary/Plan Comment DC Time >30 min.: No Discharge Summary/Plan Comment: This patient is being transferred to [facility]. Accepting is Dr. Burch hospitalist. Risk vs benefits explained to patient and sister. The risk of transfer are mvc, , worsening of condition, respiratory arrest, cardiac arrest. The risk of staying in [place] is , worsening of condition. 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 The benefits of staying in [place] is close to home. - General Info Date of Service: 05/16/19 Functional Status: Reports: New Symptoms - Review of Systems General: Reports: Other (Respiratory Distress) HEENT: Reports: No Symptoms Pulmonary: Reports: Shortness of Breath, Other (Respiratory Distress) Cardiovascular: Reports: Dyspnea on Exertion. Denies: Chest Pain, Palpitations , Edema, Lightheadedness Gastrointestinal: Reports: No Symptoms Genitourinary: Reports: No Symptoms Musculoskeletal: Reports: No Symptoms Skin: Reports: No Symptoms Neurological: Reports: Confusion Psychiatric: Reports: Confusion - Patient Data Vitals - Most Recent: Last Vital Signs Temp 95.5 F L 05/16/19 19:12 Pulse 110 H 05/16/19 20:27 Resp 18 05/16/19 20:13 BP 149/78 H 05/16/19 20:27 Pulse Ox 93 L 05/16/19 20:13 Weight - Most Recent: 110 lb 12.8 oz I&O - Last 24 hours: Intake & Output 05/16/19 05/16/19 05/16/19 06:59 14:59 22:59 Intake Total 957 Balance 957 Lab Results - Last 24 hrs: Laboratory Results - last 24 hr 05/16/19 05/16/19 05/16/19 Range/Units 05:00 05:00 18:43 WBC 20.4 H* (5.0-10.0) 10^3/uL RBC 3.40 L (4.50-6.00) 10^6/uL Hgb 8.7 L (14.0-18.0) g/dL Hct 28.5 L (40.0-54.0) % MCV 83.8 (82.0-94.0) fL MCH 25.6 L (27.0-32.0) pg MCHC 30.5 L (33.0-38.0) g/dL RDW Coeff of Patrick 21.2 H (11.0-15.0) % Plt Count 706 H (150-400) 10^3/uL Neut % (Auto) 92.1 H (35-85) % Lymph % (Auto) 2.6 L (10-55) % [place] % (Auto) 5.2 (0-16) % Eos % (Auto) 0 (0-5) % Baso % (Auto) 0.1 (0-3) % Neut # (Auto) 18.78 H (1.80-7.00) 10^3/uL Lymph # (Auto) 0.54 L (1.00-4.80) 10^3/uL [place] # (Auto) 1.06 H (0.00-0.80) 10^3/uL Eos # (Auto) 0.01 (0.00-0.45) 10^3/uL Baso # (Auto) 0.02 10^3/uL ABG pH (7.35-7.45) ABG pCO2 (35-45) mm/Hg0 ABG pO2 (80-100) mm/Hg ABG HCO3 (22.0-26.0) mm/L ABG O2 Saturation (95-98) % ABG Base Excess (-2.0-3.0) O2 Delivery Device Sodium 140 (136-145) mEq/L Potassium 3.7 D (3.5-5.0) mEq/L Chloride 102 (98-106) mEq/L Carbon Dioxide 27 (21-32) mmol/L BUN 16 (7-18) mg/dL Creatinine 1.0 (0.7-1.3) mg/dL Est Cr Clr Drug Dosing 48.86 mL/min Estimated GFR (MDRD) > 60 (>=60) mL/min Glucose 138 H (75-99) mg/dL Calcium 11.4 H (8.4-10.1) mg/dL Troponin I 0.800 H (0.00-0.06) ng/mL C-Reactive Protein 2.9 H (0.2-0.8) mg/dL NT-Pro-B Natriuret Pep 79673 H (0-1000) pg/mL 05/16/19 Range/Units 18:50 WBC (5.0-10.0) 10^3/uL RBC (4.50-6.00) 10^6/uL Hgb (14.0-18.0) g/dL Hct (40.0-54.0) % MCV (82.0-94.0) fL MCH (27.0-32.0) pg MCHC (33.0-38.0) g/dL RDW Coeff of Patrick (11.0-15.0) % Plt Count (150-400) 10^3/uL Neut % (Auto) (35-85) % Lymph % (Auto) (10-55) % [place] % (Auto) (0-16) % Eos % (Auto) (0-5) % Baso % (Auto) (0-3) % Neut # (Auto) (1.80-7.00) 10^3/uL Lymph # (Auto) (1.00-4.80) 10^3/uL [place] # (Auto) (0.00-0.80) 10^3/uL Eos # (Auto) (0.00-0.45) 10^3/uL Baso # (Auto) 10^3/uL ABG pH 7.34 L (7.35-7.45) ABG pCO2 44 (35-45) mm/Hg0 ABG pO2 64 L (80-100) mm/Hg ABG HCO3 23.6 (22.0-26.0) mm/L ABG O2 Saturation 91 L (95-98) % ABG Base Excess -2.0 (-2.0-3.0) O2 Delivery Device Nasal cannula Sodium (136-145) mEq/L Potassium (3.5-5.0) mEq/L Chloride (98-106) mEq/L Carbon Dioxide (21-32) mmol/L BUN (7-18) mg/dL Creatinine (0.7-1.3) mg/dL Est Cr Clr Drug Dosing mL/min Estimated GFR (MDRD) (>=60) mL/min Glucose (75-99) mg/dL Calcium (8.4-10.1) mg/dL Troponin I (0.00-0.06) ng/mL C-Reactive Protein (0.2-0.8) mg/dL NT-Pro-B Natriuret Pep (0-1000) pg/mL Med Orders - Current: Current Medications Discontinued Medications Albuterol (Proventil Neb Soln) 2.5 mg NEB TIDRT [facility] Last Admin: 05/16/19 19:13 Dose: 2.5 mg Albuterol (Proventil Neb Soln) Confirm Administered Dose 2.5 mg .ROUTE .STK-MED ONE Stop: 05/16/19 17:46 Last Admin: 05/16/19 17:37 Dose: Not Given Albuterol/Ipratropium (Duoneb 3.0-0.5 Mg/3 Ml) 3 ml NEB BIDRT [facility] Last Admin: 05/16/19 07:30 Dose: 3 ml Albuterol/Ipratropium (Duoneb 3.0-0.5 Mg/3 Ml) 3 ml NEB ONETIME ONE Stop: 05/16/19 18:42 Last Admin: 05/16/19 19:00 Dose: 3 ml Albuterol/Ipratropium (Duoneb 3.0-0.5 Mg/3 Ml) Confirm Administered Dose 3 ml .ROUTE .STK-MED ONE Stop: 05/16/19 19:00 Last Admin: 05/16/19 19:00 Dose: Not Given Amlodipine Besylate (Norvasc) 10 mg PO BEDTIME [facility] Last Admin: 05/16/19 19:13 Dose: 10 mg Aspirin (Halfprin) 81 mg PO DAILY [facility] Last Admin: 05/16/19 07:32 Dose: 81 mg Ceftriaxone Sodium (Rocephin) 1 gm IVPUSH Q24H [facility] Last Admin: 05/16/19 12:10 Dose: 1 gm Cholecalciferol (Vitamin D3) 50 mcg PO DAILY [facility] Last Admin: 05/16/19 07:32 Dose: 50 mcg Clopidogrel Bisulfate (Plavix) 75 mg PO DAILY [facility] Last Admin: 05/16/19 07:32 Dose: 75 mg Diltiazem HCl (Diltiazem) 10 mg IVPUSH ONETIME ONE Stop: 05/16/19 19:42 Last Admin: 05/16/19 19:55 Dose: 10 mg Enoxaparin Sodium (Lovenox) 40 mg SUBCUT Q24H [facility] Last Admin: 05/16/19 12:10 Dose: 40 mg Furosemide (Lasix) 40 mg IVPUSH ONETIME ONE Stop: 05/16/19 19:25 Last Admin: 05/16/19 19:35 Dose: 40 mg Azithromycin 500 mg/ Sodium (Chloride) 250 mls @ 250 mls/hr IV Q24H [facility] Last Admin: 05/16/19 12:10 Dose: 250 mls/hr Sodium Chloride (Normal Saline) 1,000 mls @ 999 mls/hr IV .BOLUS ONE Stop: 05/14/19 14:54 Last Admin: 05/14/19 14:04 Dose: 999 mls/hr Sodium Chloride (Normal Saline) 1,000 mls @ 75 mls/hr IV ASDIRECTED [facility] Last Admin: 05/16/19 10:55 Dose: 100 mls/hr Lisinopril (Prinivil) 20 mg PO DAILY [facility] Last Admin: 05/16/19 07:32 Dose: 20 mg Magnesium Chloride (Mag-64) 64 mg PO BID [facility] Last Admin: 05/16/19 19:13 Dose: 64 mg Methylprednisolone Sodium Succinate (Solu-Medrol) 62.5 mg IVPUSH Q12H [facility] Last Admin: 05/16/19 12:10 Dose: 62.5 mg Metoprolol Succinate (Toprol Xl) 50 mg PO DAILY [facility] Last Admin: 05/16/19 07:30 Dose: 50 mg Metoprolol Succinate (Toprol Xl) 75 mg PO DAILY [facility] Metoprolol Succinate (Toprol Xl) 25 mg PO ONETIME ONE Stop: 05/16/19 15:17 Last Admin: 05/16/19 16:17 Dose: 25 mg Mometasone Furoate/Formoterol Fumar (Dulera 200-5 Mcg) 2 puff IH BID [facility] Last Admin: 05/16/19 19:13 Dose: 2 puff Multivitamins/Minerals/Vitamin C (Tab-A-Dennys) 1 tab PO DAILY [facility] Last Admin: 05/16/19 07:32 Dose: 1 tab Nicotine (Habitrol) 21 mg TRDERM DAILY [facility] Last Admin: 05/16/19 07:30 Dose: 21 mg Nystatin (Mycostatin) 5 ml PO QID [facility] Last Admin: 05/16/19 19:13 Dose: 5 ml Ondansetron HCl (Zofran Odt) 4 mg PO Q4H PRN PRN Reason: nausea, able to take PO Potassium Chloride (Klor-Con 10) 40 meq PO ONETIME ONE Stop: 05/15/19 08:55 Last Admin: 05/15/19 09:02 Dose: 40 meq Simvastatin (Zocor) 20 mg PO BEDTIME [facility] Last Admin: 05/16/19 19:13 Dose: 20 mg Sodium Chloride (Saline Flush) 10 ml FLUSH ASDIRECTED PRN PRN Reason: Keep Vein Open - Exam General: Reports: Alert, Cooperative, Moderate Distress Neck: Reports: Supple, Trachea Midline Lungs: Reports: Decreased Breath Sounds (severe throughout), Rales (throughout) Cardiovascular: Reports: Irregular Rhythm, Tachycardia GI/Abdominal Exam: Soft, Non-Tender Extremities: Normal Inspection, No Pedal Edema Skin: Reports: Warm, Dry, Intact Neurological: Reports: Other (Alert, but not oriented. ) Psy/Mental Status: Reports: Alert, Agitated EKG INTERPRETATION EKG Date: 05/16/19 Time: 18:52 Rhythm: A-Fib Rate (Beats/Min): 126 Comparison: No Change
[2019-05-17] MEDS ORDERED: Metoprolol Succinate 25 MG Tab.ER PO SCH (08:00)
== END 2019-05-16 21:32 | DRG 189 ==
LOC: UNDOADMIN 11:45 → CC.MS 11:45
PROVIDERS: ADMIT Physician Assistant Medical; ATTEND Family Medicine
DX: J96.01 Acute respiratory failure with hypoxia (principal); F10.239 Alcohol dependence with withdrawal, unspecified; J43.9 Emphysema, unspecified; I48.91 Unspecified atrial fibrillation; R41.0 Disorientation, unspecified; Z79.82 Long term (current) use of aspirin; Z79.899 Other long term (current) drug therapy
CPT/HCPCS: 36415; 36600; 70450; 71045; 71046; 71250; 80048; 80053; 82310; 82330; 82803; 83735; 83880; 83970; 84100; 84155; 84165; 84484; 85025; 86140; 93005; 94640; A9270-GY; G0103; J0456; J0696; J1650; J1940; J2930; J3490; J7030; J7050; J7613-GY; J7620-GY